=== PATIENT | female | born 1990 | race Caucasian/White ===

== ENCOUNTER 2017-05-23 16:24 | Day surgery (SDC) | payer BC ==
[2017-05-23 17:49] VITALS: BMI 29.2
[2017-05-23] MEDS ORDERED: Lactated Ringer's 1,000 ML IV SCH ×3 (18:30→19:30)
[2017-05-23] MEDS ORDERED: Ondansetron HCl/PF 4 MG/2 ML Vial ONE (18:30)
[2017-05-23] MEDS ORDERED: Ondansetron HCl/PF 4 MG/2 ML Vial IVPB SCH (18:30)
[2017-05-23] MEDS ORDERED: Lactated Ringer's 2,000 ML IV SCH (18:30)
[2017-05-23] MEDS ORDERED: Lidocaine 1% (PF) 30 ML VIAL SC PRN (19:29)
[2017-05-23] MEDS ORDERED: Ondansetron HCl/PF 4 MG/2 ML Vial IVP PRN (19:29)
[2017-05-23] MEDS ORDERED: HYDROcodone/Acetaminophen 5/325 mg Tablet PO PRN ×2 (19:29)
[2017-05-23] MEDS ORDERED: Ibuprofen 800 MG TAB PO PRN (19:29)
[2017-05-23] MEDS ORDERED: LR / Pitocin 40 units/1000 ml 1,000 ML IV PRN (19:29)
[2017-05-23] MEDS ORDERED: Misoprostol 100 MCG TAB VAG SCH (19:30)
[2017-05-23 21:10] LABS: Bilirubin Negative (Negative); Blood, Urine Negative (Negative); Glucose, Urine (Dipstick) Negative (Negative); Ketone, Urine > or equal to 80 mg/dL (Negative); Nitrite Negative (Negative); Protein, Urine (Dipstick) Negative (Neg-Trace); Urobilinogen 0.2 mg/dL (0.2-1.0)
[2017-05-23 21:12] LABS: Bacteria/HPF Rare-Few HPF (None Seen); Hyaline Casts/LPF 0-3 HYALINE CAST LPF (0-3 Hyaline); RBC/HPF 0-3 HPF (0-3); WBC/HPF 0-3 HPF (0-3)
--- NOTE | 2017-05-24 08:04 | PRG ---
DATE OF SERVICE: 05/23/2017 PRIMARY OB: Dr. Katie Dang CHIEF COMPLAINT: Shortened cervical length, nausea, vomiting and dehydration. HISTORY OF PRESENT ILLNESS: The patient is a 26-year-old G2, P1 female with an intrauterine pregnanc y of di-di twins at 21 weeks gestation who has not been feeling well and upon evaluation, was noted t o have a cervical length of 1 cm. In addition, the patient has been having persistent nausea and vom iting over the last 24 hours. The patient denies any leakage of fluid or vaginal bleeding. She lacy es any urinary urgency or frequency. She denies any fever or illness, chest pain, shortness of breat h. The patient reports that she has been having uterine contractions every couple hours that were more i ntense last night and now she feels them and notices that they are there, but they are not painful wh en they occur. PAST MEDICAL HISTORY: Anxiety, PCOS, hypothyroidism. PAST SURGICAL HISTORY: None. SOCIAL HISTORY: Denies drug, alcohol or tobacco use. ALLERGIES: No known drug allergies. MEDICATIONS: Metformin 500 mg twice a day. Liothyronine 5 mcg daily, vitamins. OB LABS: Blood type is A positive, antibody screen is negative. HIV is nonreactive. RPR is nonreac tive. Hepatitis B surface antigen is nonreactive. REVIEW OF SYSTEMS: Per HPI. PHYSICAL EXAMINATION: VITAL SIGNS: Blood pressure 110/64, heart rate of 74, temperature 99.4. GENERAL: She appears to be in no acute distress. She is alert and oriented, and cooperative and ple asant to interact with. HEENT: Normocephalic, atraumatic. CHEST: Clear to auscultation bilaterally. HEART: Regular rate and rhythm. ABDOMEN: Soft and gravid. EXTREMITIES: Nontender. Nonedematous. PELVIC: Cervix is closed on digital exam. Heart tones are dopplered, baby A is 158, and baby B at 162. LABORATORY: UA was drawn and showed a specific gravity 1.015 with greater than 80 ketones, no protei n, no nitrites, no leukocyte esterase, no white blood cells and rare to few bacteria. ASSESSMENT AND PLAN: The patient is a 26-year-old female with what sounds like a gastroenteritis and persistent nausea and vomiting over the last 24 hours with inability to eat. We have given her IV, have given her 8 mg of Zofran IV and given her 2 liters of fluid IV. Afterwards she felt well enough to eat and was able to tolerate a regular diet without difficulty. Her cervical exam was closed stephanie or to discharge. The patient has instructions from her provider to remain at bed rest and has follow up next Saturday. Vaginal progesterone has been ordered by her primary provider for her to start. Samantha canseco discussed that given her twin gestation that cerclage at this time is relatively contraindicated. Prior to discharge Dr. Dang was updated to the status for the patient.
== END 2017-05-23 21:15 | disposition home or self-care (01) ==
LOC: L&D/OP 16:24
PROVIDERS: ATTEND Student in an Organized Health Care Education/Training Program
DX: O99.612 Diseases of the digestive system complicating pregnancy, second trimester (principal); K52.9 Noninfective gastroenteritis and colitis, unspecified; O26.872 Cervical shortening, second trimester; O30.042 Twin pregnancy, dichorionic/diamniotic, second trimester; E28.2 Polycystic ovarian syndrome; O99.282 Endocrine, nutritional and metabolic diseases complicating pregnancy, second trimester; E03.9 Hypothyroidism, unspecified; Z3A.21 21 weeks gestation of pregnancy; Z79.899 Other long term (current) drug therapy
CPT/HCPCS: 81001; 96360; 96361; 96375; J2405

== ENCOUNTER 2017-07-18 16:06 | Inpatient (IN) | payer BC ==
[2017-07-18 16:53] VITALS: BMI 33.4
[2017-07-18 18:00] LABS: Amnisure Test No Membranes Rupture (No Rupture)
[2017-07-18 18:01] LABS: Amnisure Internal Control QC ACCEPTABLE (ACCEPTABLE)
[2017-07-18] MEDS ORDERED: Ondansetron HCl/PF 4 MG/2 ML Vial IVP PRN (18:56)
[2017-07-18] MEDS ORDERED: Acetaminophen 500 MG TAB PO PRN (18:56)
[2017-07-18] MEDS ORDERED: Lactated Ringer's 1,000 ML IV SCH (19:00)
[2017-07-18] MEDS: Betamet Acet/Betamet Na Ph 30 MG/5 ML VIAL IM SCH (19:49)
--- NOTE | 2017-07-18 20:31 | ULT ---
LIMITED OB ULTRASOUND 07/18/17 HISTORY: Exam requested to evaluate BETTY. FINDINGS: A live twin is seen. The twin on the maternal left with vertex presentation is labeled twin A and the twin on the maternal right with breech presentation is labeled twin B. Twin A: The heart rate measures 144 beats per minute. BETTY measures 8.7. Twin B: BETTY measures 11.7 cm. heart rate measures 149 beats per minute. Placenta is anteriorly located. No placenta previa is seen. POS: [facility]
[2017-07-18] MEDS ORDERED: metFORMIN 500 MG TAB PO SCH (21:00)
[2017-07-18] MEDS ORDERED: diphenhydrAMINE 50 MG/ML VIAL IVP SCH (23:30)
[2017-07-19] MEDS ORDERED: diphenhydrAMINE 25 MG CAP PO PRN (00:19)
--- NOTE | 2017-07-19 03:40 | HP ---
DATE OF ENCOUNTER: 07/18/2017 PRIMARY DISTILLERY SUPERVISOR: Katie Dang MD CHIEF COMPLAINT: Uterine contractions and shortened cervical length with a twin gestation. HISTORY OF PRESENT ILLNESS: The patient is a 26-year-old G2, P1 female with an intrauterine pregnanc y at 29 weeks and 1 day with di-di twin gestation. The patient had a routine clinic visit today and was noted to have a cervical length. Cervical exam of 180% reporting a change in her discharge of be ing more mucousy. The patient was sent to the Labor and Delivery ER for evaluation. The patient rep orts that she has been feeling some light abdominal discomfort that she attributed to the movem ent. She also reports she has been having a mucousy discharge and wetness, and was unsure if she had broke her water. The patient denies any recent illness, fever, fall, headache, chest pain, shortnes s of breath, nausea, vomiting, diarrhea, constipation, any new rashes, hip problems, or knee problems . Patient has a history of a delivery or a term delivery at 37 weeks. She has received steroid s at about 24 weeks gestation for shortened cervical length. She reports that got a DTaP vaccination today. PAST MEDICAL HISTORY: Significant for anxiety, PCOS, hypothyroidism. PAST SURGICAL HISTORY: Negative. SOCIAL HISTORY: Drinks alcohol prior to . ALLERGIES: No known drug allergies. CURRENT MEDICATIONS: The patient reports that she is on 150 mcg of levothyroxine, metformin 500 mg t wice a day, vitamins. OBSTETRICAL LABORATORY DATA: Blood type is A positive, antibody screen is negative, HIV is nonreacti ve. RPR nonreactive. Hepatitis B surface antigen nonreactive. REVIEW OF SYSTEMS: Per HPI. PHYSICAL EXAMINATION: VITAL SIGNS: Blood pressure 118/68, heart rate 103, respiratory rate 18, satting 99% on room air, te mperature 99.4. GENERAL: The patient appears to be in no acute distress. She is alert and oriented, cooperative and pleasant to interact with. HEENT: Normocephalic, atraumatic. LUNGS: Clear to auscultation bilaterally. HEART: Regular rate and rhythm. ABDOMEN: Gravid, soft, nontender to palpation. EXTREMITIES: Nontender with bilateral edema. GENITOURINARY: Has been deferred. heart tracing demonstrated baby A in the 140s with moderate long-term variability, positive accelerations, no decelerations, and baby B also in the 140s, but di stinctly different with moderate long-term variability and positive accelerations. Tocometer showing contractions about every 4-6 minutes, not clearly noticed by the patient. LABORATORY DATA: AmniSure test is negative. BETTY of both baby A and baby B are within normal limits at 8 and 11 cm. ASSESSMENT AND PLAN: The patient is a 26-year-old female G2, P1 with an intrauterine of di -di twins at 29 weeks and a day with a known shortened cervical length and dilation of 1 cm. These f indings have been present. Cervical length has been present nearly the last month and both fetuses h ave category 1 tracings. Patient does have contractions present and there has been a reported change of cervix and closed to 1 cm. We will be keeping the patient for observation to determine whether t here is progress in this contraction pattern to actual labor. The patient, per her primary OB's requ est, will be receiving steroids during her stay. Dr. Dang will be assuming care and responsibilit y for Ms. Hollingsworth on this admission.
[2017-07-19] MEDS: Lactated Ringer's 1,000 ML IV SCH ×3 (06:39→19:29)
--- NOTE | 2017-07-19 07:45 | PDOC.LDPN ---
Labor & Delivery Progress Note - Subjective Subjective: comfortable, other (Can slightly feel contractions q 2-6min, good fm , no lof vb) - Objective Vital signs reviewed and normal: yes General: NAD Uterine fundus: non tender Dilation: 1 Effacement: 90% Station: -2 (as of yesterday) FHT: category 1 (x2) [place] contractions every: q2-6min - Assessment (1) Dichorionic diamniotic twin in third trimester Code(s): O30.043 - TWIN , DICHORIONIC/DIAMNIOTIC, THIRD TRIMESTER Current Visit: Yes Status: Acute (2) labor in third trimester Code(s): O60.03 - LABOR WITHOUT DELIVERY, THIRD TRIMESTER Current Visit: Yes Status: Acute (3) Short cervix affecting Code(s): O26.879 - CERVICAL SHORTENING, UNSPECIFIED TRIMESTER Current Visit: Yes Status: Acute -: 26yo at 29w2d by LMP with mindi TIUP, short cervix, presented yesterday with ctx, FFN was positive, on L&D pt found to be brittny however not painful, admitted for steroids and observation. Ctx persistent s/p po hydration and bedrest, will start procardia tocolysis. BMZ 1/2. If labors for Mg for [employer] and PCS due to TIUP and EFW < 1500gm. Julio aware. Cont q shift NST. Plan of care disc with pt. Ok to cont regular diet. CBC and TSH ordered.
[2017-07-19] MEDS ORDERED: NIFEdipine 10 MG CAP PO PRN (08:22)
[2017-07-19] MEDS ORDERED: NIFEdipine 10 MG CAP PO SCH ×4 (08:22→23:00)
[2017-07-19] MEDS: Levothyroxine 150 MCG TAB PO SCH (08:34)
[2017-07-19] MEDS: metFORMIN 500 MG TAB PO SCH ×2 (08:35→17:34)
[2017-07-19 09:20] LABS: #Eosinphils 0.1 thou/uL (0.0-0.7); #Lymphocytes 1.5 thou/uL (1.20-3.40); #Monocytes 0.2 thou/uL (0.11-0.59); #Neutrophils 13.4 thou/uL (1.40-6.50); %Eosinophils 0.5 % (0.0-10.0); %Monocytes 1.1 % (0.0-10.0); %Neutrophils 88.5 % (42.0-75.0); Hemoglobin 11.4 g/dL (12.0-16.0); Mean Corpuscular HGB CONC 34.2 g/dL (32.0-36.0); Mean Corpuscular Hemoglobin 30.6 pg (27.0-31.0); Mean Corpuscular Volume 89.5 fl (81.0-99.0); Mean Platelet Volume 7.9 fL (7.4-10.4); Platelet Count 209 thou/uL (130-400); Red Blood Cell (RBC) Count 3.71 mill/uL (4.20-5.40); White Blood Cell (WBC) Count 15.2 thou/uL (4.8-10.8)
[2017-07-19 18:14] VITALS: BP 112/78
[2017-07-19] MEDS: Betamet Acet/Betamet Na Ph 30 MG/5 ML VIAL IM SCH (19:49)
[2017-07-19] MEDS ORDERED: NIFEdipine 10 MG CAP ONE (21:59)
[2017-07-19] MEDS ORDERED: Zolpidem Tartrate 5 MG TAB PO PRN (22:00)
[2017-07-20] MEDS: Levothyroxine 150 MCG TAB PO SCH (08:40)
[2017-07-20] MEDS: metFORMIN 500 MG TAB PO SCH (08:41)
[2017-07-20 09:30] VITALS: TEMP 98.1
--- NOTE | 2017-07-20 11:22 | DIS ---
SUMMARY OF HOSPITAL COURSE: Ms. Hollingsworth is a 29-week, dichorionic diamniotic twin who was a dmitted with a shortened cervix and cervical dilatation. She does have occasional contractions. The se responded well to IV fluids, bed rest, and Procardia. The patient only needed Procardia for sever al doses. She received betamethasone x2 doses. No evidence of chorioamnionitis, rupture o f membranes were noted. She had a positive fibronectin. She was discharged home with p.r.n. P rocardia at the patient's request 10 mg q.4-8 hours p.r.n. She will have close followup on a weekly basis with Dr. Katie Dang.
== END 2017-07-20 11:07 | disposition home health service (06) | DRG 778 ==
LOC: L&D/OP 16:06 → L&D 20:54 → OBSVTOIN 20:54
PROVIDERS: ADMIT Student in an Organized Health Care Education/Training Program; ATTEND Student in an Organized Health Care Education/Training Program
DX: O60.03 Preterm labor without delivery, third trimester (principal); O26.873 Cervical shortening, third trimester; O34.33 Maternal care for cervical incompetence, third trimester; Z3A.29 29 weeks gestation of pregnancy; O30.043 Twin pregnancy, dichorionic/diamniotic, third trimester
CPT/HCPCS: 76815; 82731; 84112; 84443; 85025; 99285; J0702; J2405

== ENCOUNTER 2017-07-25 11:23 | Inpatient (IN) | payer BC ==
[2017-07-25 12:06] VITALS: BMI 33.6
[2017-07-25] MEDS ORDERED: Promethazine HCl 25 MG/ML VIAL IM PRN (12:16)
[2017-07-25] MEDS ORDERED: Ondansetron HCl/PF 4 MG/2 ML Vial IVP PRN (12:16)
[2017-07-25] MEDS ORDERED: Calcium Gluconate 4.6 MEQ in Sodium Chloride 0.9% 100 ML IVPB PRN (12:18)
[2017-07-25] MEDS ORDERED: Lactated Ringer's 1,000 ML IV SCH (12:30)
[2017-07-25] MEDS ORDERED: Magnesium Sulfate 20 gm/500 ml 20 GM/500 ML BAG IVPB SCH (12:30)
[2017-07-25] MEDS ORDERED: Penicillin G Potassium 5 MILL.UNITS in Sodium Chloride 0.9% 100 ML IVPB SCH (12:30)
[2017-07-25 13:08] LABS: Hemoglobin 11.6 g/dL (12.0-16.0); Mean Corpuscular HGB CONC 33.4 g/dL (32.0-36.0); Mean Corpuscular Hemoglobin 29.7 pg (27.0-31.0); Mean Platelet Volume 7.9 fL (7.4-10.4); Platelet Count 259 thou/uL (130-400); RBC Distribution Width 12.9 % (11.5-14.5); White Blood Cell (WBC) Count 14.3 thou/uL (4.8-10.8)
[2017-07-25] MEDS: Magnesium Sulfate 20 GM/WATER 500 ML BAG IVPB SCH (13:12)
--- NOTE | 2017-07-25 13:15 | PDOC.LDHP ---
Labor and Delivery H&P Chief complaint: contractions HPI: 26yo at 30w1d with mindi TIUP with complaints of dizziness, weakness, hot flashes and increase in pelvic pressure. +FM. No VB LOF. Discharge unchanged. Has been followed for short cervix since 22wk. s/p BMZ x 2 courses , last was 07/18-07/19. Current gestational age (weeks): 30 Due date: 10/02/17 Dating criteria: last menstrual period Grav: 2 Para: 1 OB History Details: Prior preg SROM at 36+6, delivery at 37w0d, 7lb6oz Current complications: di/di twins Abnormal US findings: No (A: ceph 1461gm MVP 3.6, B: Breech 1768gm MVP 1.56cm) Past Medical History: hypothyroid, PCOS, anxiety, CF carrier- negative Current medications: pre-suze vitamins Previous surgical history: none Allergies/Adverse Reactions: Allergies Allergy/AdvReac Type Severity Reaction Status Date / Time No Known Allergies Allergy Unverified 05/23/17 17:46 Social history: none - Physical Exam Vital signs reviewed and normal: yes General: NAD Heart: RRR Lungs: CTAB Abdomen: NTTP Extremeties: no edema FHT: category 1 [place] contractions every: 10min - Vaginal Exam cm dilated: 4 Effacement: 90% Station: -1 - OB Labs RH: positive Antibody Screen: negative HIV: negative RPR: negative HEPSAg: negative GBS: unknown Rubella: immune - Assessment L&D Assessment: labor Twin IUP at 30w1d with labor and advanced cervical dilation. s/p BMZ x 2 courses Start Mag for SHANK TURNER Not for retocolysis. For primary CS due to EFW and concern for head entrapment of second twin with breech extraction. Julio consult Inpatient monitoring. FHT Cat 1. MPV low in Baby B on sono today, will repeat tomorrow.
[2017-07-25 13:39] LABS: HBSAg Index 0.11 S/CO (0-0.99); Hep B Surf Ag Non-Reactive S/CO (NonReactive)
[2017-07-25 13:40] LABS: Syphilis Antibody Nonreactive (Nonreactive); Syphilis Antibody Index 0.04 S/CO (<1.00 Non-Reactive)
--- NOTE | 2017-07-25 14:45 | PDOC.APC ---
Antepartum Consult SONIA MARTINEZ is a 26 year old female at [30 1/7] gestational weeks. I was asked by Dr Dang to speak with the patient regarding anticipated course for a baby born at 30 weeks. I spoke with the patient and father of the baby. I outlined that the timing and mode of delivery is a decision that will be made by the OB service. Once the patient is taken for delivery, the resuscitation team will be present and I outlined the composition of the resuscitation team. The initial focus will be on respiratory stabilization and may include minimal assistance, CPAP or intubation with surfactant administration. I discussed that the babies will need to be admitted to the NICU in an isolette due to temperature instability associated with prematurity. We will then obtain IV access (peripheral or umbilical depending on size) as babies are at risk for hypoglycemia. We discussed that babies born are at higher risk for feeding intolerance, infection and jaundice. I discussed that breastmilk is the best nutrition for babies and she is strongly encouraged to pump after delivery. Mother plans to breastfeed. I discussed that donor milk is available for babies and discussed the risks and benefits as well as the risk of NEC with formula use. I explained the risk of IVH and ROP and the possible screening based on the weight of the babies. We discussed that the duration of hospital stay will be determined on the clinical course of the babies but they should anticipate hospitalization until the due date. I outlined the milestones that needed to be achieved to ensure safe discharge home. They had the opportunity to ask questions. I encouraged them to contact our service again if additional questions arise. I spend 20 minutes in consultation and coordination of care with the patient. Labs: Ante Labs Blood Type A POSITIVE 07/25/17 12:47 Hep Bs Antigen Non-Reactive S/CO (NonReactive) 07/25/17 12:47
[2017-07-25] MEDS: Lactated Ringer's 1,000 ML IV SCH (15:48)
[2017-07-25] MEDS: Penicillin G 2.5 MILL.units 2.5 MILL.UNITS in Premix Bag 1 BAG IVPB SCH ×2 (17:59→21:41)
[2017-07-25 22:38] LABS: Amnisure Test No Membranes Rupture (No Rupture)
[2017-07-25 22:39] LABS: Amnisure Internal Control QC ACCEPTABLE (ACCEPTABLE)
[2017-07-25] MEDS: Zolpidem Tartrate 5 MG TAB PO PRN (23:11)
[2017-07-25] MEDS: Acetaminophen 500 MG TAB PO PRN (23:11)
[2017-07-26] MEDS: Penicillin G 2.5 MILL.units 2.5 MILL.UNITS in Premix Bag 1 BAG IVPB SCH ×2 (01:23→05:47)
[2017-07-26] MEDS: Lactated Ringer's 1,000 ML IV SCH (05:48)
[2017-07-26] MEDS: Magnesium Sulfate 20 GM/WATER 500 ML BAG IVPB SCH (07:35)
[2017-07-26 08:02] VITALS: BP 119/71
--- NOTE | 2017-07-26 08:17 | PDOC.LDPN ---
Labor & Delivery Progress Note - Subjective Subjective: comfortable (no painful contractions, good fm. had small lof last night, amnisure neg, no more lof) - Objective Vital signs reviewed and normal: yes General: NAD Uterine fundus: non tender FHT: category 1 (x2) [place] contractions every: 30min - Assessment (1) Dichorionic diamniotic twin in third trimester Code(s): O30.043 - TWIN , DICHORIONIC/DIAMNIOTIC, THIRD TRIMESTER Current Visit: No Status: Acute (2) labor in third trimester Code(s): O60.03 - LABOR WITHOUT DELIVERY, THIRD TRIMESTER Current Visit: No Status: Acute Qualifiers: labor delivery status: without delivery Qualified Code(s): O60.03 - labor without delivery, third trimester -: 26yo with mindi TIUP at 30w2d with APTL. Last exam /-1. Not for retocolysis since steroids have been given (last week was second course). Was on Mag overnight for RIVETER PNEUMATIC. Will DC now. HLIV. DC GBS ppx, GBS pending FHT Cat 1 x 2, q shift NST. Yesterday on in office sono showed low MVP baby B will recheck today. Transfer to APU room. For inpatient observation for return of PTL. For primary CS if labors due to prematurity and risks of head entrapment with breech extraction of B. Restart home meds.
--- NOTE | 2017-07-26 10:39 | ULT ---
SONOGRAPHIC BIOPHYSICAL PROFILE: HISTORY: Twin . labor. FINDINGS: Fetus A is designated to the maternal left. Amniotic fluid index=9.0. Good tone and gross mov ements were demonstrated. breathing movements were not demonstrated. Fetus B is designated to the maternal right. Amniotic fluid index=7.2. tone and gross movemen ts were demonstrated. breathing movement was not visualized. IMPRESSION: Sonographic biophysical profile score is 6/8 for each fetus of the twin . Breathing movemen t was not visualized with either fetus. POS: [facility]
[2017-07-26] MEDS: Prenatal Vitamin 1 TAB PO SCH (11:10)
[2017-07-26] MEDS: Acetaminophen 500 MG TAB PO PRN (11:10)
[2017-07-26] MEDS: metFORMIN 500 MG TAB PO SCH (17:50)
[2017-07-27] MEDS: Levothyroxine 150 MCG TAB PO SCH (06:25)
[2017-07-27] MEDS: Prenatal Vitamin 1 TAB PO SCH (10:43)
[2017-07-27] MEDS: metFORMIN 500 MG TAB PO SCH ×2 (11:10→20:04)
[2017-07-27] MEDS: Docusate 100 MG CAP PO PRN (11:19)
[2017-07-27] MEDS: Milk Of Magnesia 30 ML UDCUP PO PRN (11:19)
[2017-07-28] MEDS: Levothyroxine 150 MCG TAB PO SCH (06:24)
[2017-07-28] MEDS: Prenatal Vitamin 1 TAB PO SCH (09:17)
[2017-07-28] MEDS: metFORMIN 500 MG TAB PO SCH ×2 (09:18→20:01)
--- NOTE | 2017-07-28 10:58 | PRG ---
DATE OF SERVICE: 07/27/2017 SUBJECTIVE: The patient feels well. She is having fewer contractions today than yesterday. She denies any vaginal bleeding or leakage of fluid. She reports good movement. OBJECTIVE: VITAL SIGNS: The patient is afebrile. Vital signs are within normal limits. GENERAL: Well-appearing female, in no acute distress. OBSTETRIC: heart tracing is category 1. OBSTETRICAL HISTORY: The patient had a biophysical profile of both babies that was 6/8 yesterday, -2 for breathing on each baby. ASSESSMENT AND PLAN: 2, para 1 female, 30 weeks 3 days with twin labor at 4 cm. The patient is doing well, surveillance is reassuring. She has received betamethasone. We will continue the patient with current plan of care. JORGE
--- NOTE | 2017-07-28 11:49 | PDOC.LDPN ---
Labor & Delivery Progress Note - Subjective Subjective: comfortable, no concerns - Objective Vital signs reviewed and normal: yes General: NAD, resting Uterine fundus: non tender FHT: category 1 (150s/135, mod variability, + accels, no decels) [place] contractions every: None - Assessment (1) Dichorionic diamniotic twin in third trimester Code(s): O30.043 - TWIN , DICHORIONIC/DIAMNIOTIC, THIRD TRIMESTER Current Visit: No Status: Acute (2) labor in third trimester Code(s): O60.03 - LABOR WITHOUT DELIVERY, THIRD TRIMESTER Current Visit: No Status: Acute Qualifiers: labor delivery status: without delivery Qualified Code(s): O60.03 - labor without delivery, third trimester Plan: continue plan of care -: Doing well without complaints. No e/o continued PTL, s/p tocolysis, celestone x 2. status reassuring. Continue expectant management.
[2017-07-28] MEDS: Mag-Al 1200 mg/1200 mg/30 ML UDCUP PO PRN (12:54)
[2017-07-28] MEDS: Docusate 100 MG CAP PO PRN (12:55)
[2017-07-28] MEDS ORDERED: Lactated Ringer's 1,000 ML IV SCH (23:45)
[2017-07-28] MEDS ORDERED: NIFEdipine 10 MG CAP ONE (23:49)
[2017-07-28] MEDS ORDERED: NIFEdipine 10 MG CAP PO PRN (23:53)
[2017-07-29] MEDS: Lactated Ringer's 1,000 ML IV SCH ×4 (01:04→22:17)
[2017-07-29] MEDS: Zolpidem Tartrate 5 MG TAB PO PRN ×2 (01:06→22:18)
[2017-07-29] MEDS: Prenatal Vitamin 1 TAB PO SCH (08:07)
[2017-07-29] MEDS: metFORMIN 500 MG TAB PO SCH ×2 (08:08→20:20)
[2017-07-29] MEDS: Levothyroxine 150 MCG TAB PO SCH (08:09)
[2017-07-29 10:04] LABS: Hemoglobin 10.6 g/dL (12.0-16.0); Mean Corpuscular HGB CONC 32.7 g/dL (32.0-36.0); Mean Corpuscular Hemoglobin 29.2 pg (27.0-31.0); Mean Corpuscular Volume 89.2 fl (81.0-99.0); Mean Platelet Volume 7.9 fL (7.4-10.4); Platelet Count 197 thou/uL (130-400); RBC Distribution Width 13.5 % (11.5-14.5); Red Blood Cell (RBC) Count 3.64 mill/uL (4.20-5.40); White Blood Cell (WBC) Count 12.9 thou/uL (4.8-10.8)
--- NOTE | 2017-07-29 11:20 | PDOC.LDPN ---
Labor & Delivery Progress Note - Subjective Subjective: comfortable (, feeling nonpainful contractions q 10min, last night more painful q5min, procardia helped, slept well last night. No LOF or VB. Good FM) - Objective Vital signs reviewed and normal: yes General: NAD Uterine fundus: non tender Dilation: 4 Effacement: 90% Station: -1 (BBOW) FHT: category 1 (x2) [place] contractions every: q10min - Assessment (1) Dichorionic diamniotic twin in third trimester Code(s): O30.043 - TWIN , DICHORIONIC/DIAMNIOTIC, THIRD TRIMESTER Current Visit: No Status: Acute (2) labor in third trimester Code(s): O60.03 - LABOR WITHOUT DELIVERY, THIRD TRIMESTER Current Visit: No Status: Acute Qualifiers: labor delivery status: without delivery Qualified Code(s): O60.03 - labor without delivery, third trimester -: mindi TIUP at 30w5d with arrested PTL. Has prn procardia for symptoms however not for tocolysis. SVE unchanged from admit. Ok for q shift monitoring, showering and regular diet. Continue inpatient mgmt for advanced cervical dilation at 30wk. For primary CS due to weights and risks associated with vaginal delivery of twins at this gestation. GBS pos. s/p BMZ x 2 courses. FHT Cat 1 x2.
[2017-07-29] MEDS: Docusate 100 MG CAP PO PRN (11:45)
[2017-07-30] MEDS: Levothyroxine 150 MCG TAB PO SCH (08:02)
[2017-07-30] MEDS: metFORMIN 500 MG TAB PO SCH ×2 (08:03→19:48)
[2017-07-30] MEDS: Prenatal Vitamin 1 TAB PO SCH (08:19)
--- NOTE | 2017-07-30 08:29 | PDOC.LDPN ---
Labor & Delivery Progress Note - Subjective Subjective: comfortable (contractions have decreased, slept well overnight, very mild intensity and infrequent this am) - Objective Vital signs reviewed and normal: yes General: NAD Uterine fundus: non tender FHT: category 1 ( x 2) - Assessment (1) Dichorionic diamniotic twin in third trimester Code(s): O30.043 - TWIN , DICHORIONIC/DIAMNIOTIC, THIRD TRIMESTER Current Visit: No Status: Acute (2) labor in third trimester Code(s): O60.03 - LABOR WITHOUT DELIVERY, THIRD TRIMESTER Current Visit: No Status: Acute Qualifiers: labor delivery status: without delivery Qualified Code(s): O60.03 - labor without delivery, third trimester -: Arrested labor with advanced cervical dilation of mindi twins at 30.6wk. Asymptomatic currently, not for retocolysis if labors and will be for PCS at this gestational age and weights. Will repeat BPP today, 12/13 last Saturday due to no breathing however at 30w do not always see breathing movements. No evidence of immediate compromise and normal growth noted on ultrasound last . Hep lock IV. Cont current APU care.
--- NOTE | 2017-07-30 09:49 | ULT ---
NON STRESS BIOPHYSICAL PROFILE: Date: 07/30/16 HISTORY: Twin gestation. Pre-term labor. COMPARISON: 07/26/17. TECHNIQUE: Non stress biophysical profile of Twin A and Twin B was performed. FINDINGS: TWIN A: position is vertex. Anterior placenta. heart tones with a rate of 155 beats/minute. Amnio tic fluid index is 6.9. Tone: 2 Breathin Movement: 2 Amniotic Fluid: 2 Total Score: 8/8 TWIN B: Breech presentation. Anterior placenta. heart tones with a rate of 133 beats/minute. Amniotic f luid index is 8.7 cm. Tone: 2 Breathin Movement: 2 Amniotic Fluid: 2 Total Score: 8/8 IMPRESSION: Non stress biophysical profile with a total score of 8/8 for Twin A, as well as for Twin B. Note, lower uterine segment is not adequately assessed on this exam due to shadowing. Cervical length cannot be measured. POS: [facility]
[2017-07-30] MEDS: Docusate 100 MG CAP PO PRN (20:41)
[2017-07-30] MEDS: Zolpidem Tartrate 5 MG TAB PO PRN (22:15)
[2017-07-31] MEDS: Levothyroxine 150 MCG TAB PO SCH (08:50)
[2017-07-31] MEDS: metFORMIN 500 MG TAB PO SCH ×2 (08:51→18:28)
--- NOTE | 2017-07-31 10:11 | PDOC.LDPN ---
Labor & Delivery Progress Note - Subjective Subjective: comfortable, other (no contractions, good FM, no LOF or bleeding) - Objective Vital signs reviewed and normal: yes General: resting FHT: variability present (appropriate for GA x 2) - Assessment (1) 31 weeks gestation of Code(s): Z3A.31 - 31 WEEKS GESTATION OF Current Visit: Yes Status : Acute (2) Dichorionic diamniotic twin in third trimester Code(s): O30.043 - TWIN , DICHORIONIC/DIAMNIOTIC, THIRD TRIMESTER Current Visit: No Status: Acute (3) Short cervix affecting Code(s): O26.879 - CERVICAL SHORTENING, UNSPECIFIED TRIMESTER Current Visit: No Status: Acute Plan: continue plan of care -: A?P: Pt is now 31 weeks GA, no symptomatic contractions, sp steroid benefit. Continue modified bed rest and close monitoring for si/sx of PTL.
[2017-07-31] MEDS: Prenatal Vitamin 1 TAB PO SCH (18:33)
[2017-07-31] MEDS: Zolpidem Tartrate 5 MG TAB PO PRN (22:10)
--- NOTE | 2017-08-01 08:41 | PDOC.LDPN ---
Labor & Delivery Progress Note - Subjective Subjective: vaginal pressure (lost mucus plug last night, increase in painful contractions overnight, about 5 total. Good FM. Ctx this am are mild, 5/10) - Objective Vital signs reviewed and normal: yes General: NAD Uterine fundus: non tender Dilation: 4 Effacement: 75% Station: -1 FHT: category 1 (x2) - Assessment (1) Dichorionic diamniotic twin in third trimester Code(s): O30.043 - TWIN , DICHORIONIC/DIAMNIOTIC, THIRD TRIMESTER Status: Acute (2) labor in third trimester Code(s): O60.03 - LABOR WITHOUT DELIVERY, THIRD TRIMESTER Status: Acute Qualifiers: labor delivery status: without delivery Qualified Code(s): O60.03 - labor without delivery, third trimester -: Arrested PTL, SVE unchanged, reassured pt. Cont modified bedrest. FHT Cat 1 x 2, cont q shift NST Cont APU care.
[2017-08-01] MEDS: metFORMIN 500 MG TAB PO SCH ×2 (08:46→19:31)
[2017-08-01] MEDS: Levothyroxine 150 MCG TAB PO SCH (08:47)
[2017-08-01] MEDS: Docusate 100 MG CAP PO PRN (12:06)
[2017-08-01] MEDS: Prenatal Vitamin 1 TAB PO SCH (12:06)
[2017-08-01] MEDS: Milk Of Magnesia 30 ML UDCUP PO PRN (12:06)
[2017-08-02] MEDS: Levothyroxine 150 MCG TAB PO SCH (06:26)
--- NOTE | 2017-08-02 07:44 | PDOC.LDPN ---
Labor & Delivery Progress Note - Subjective Subjective: comfortable - Objective Vital signs reviewed and normal: yes General: NAD Uterine fundus: non tender FHT: category 1 (x 2) [place] contractions every: rare - Assessment (1) Dichorionic diamniotic twin in third trimester Code(s): O30.043 - TWIN , DICHORIONIC/DIAMNIOTIC, THIRD TRIMESTER Current Visit: No Status: Acute (2) labor in third trimester Code(s): O60.03 - LABOR WITHOUT DELIVERY, THIRD TRIMESTER Current Visit: No Status: Acute Qualifiers: labor delivery status: without delivery Qualified Code(s): O60.03 - labor without delivery, third trimester -: Arrested PTL at 31wk of mindi TIUP, 4cm stable. No e/o recurrence at this time. s/p steroid x 2 courses. Cont inpt expectant mgmt, if stable at 32w may consider DC home. Sono next week for growth. NST q shift, Cat 1 for GA. GBS pos, for PCN if labors. Currently for PCS if labors due to weights. Cont APU care. Ok for ad ricky activity, prn laxatives for constipation.
[2017-08-02] MEDS ORDERED: Senokot 8.6 MG TAB PO PRN (08:21)
[2017-08-02] MEDS: Prenatal Vitamin 1 TAB PO SCH (08:31)
[2017-08-02] MEDS: metFORMIN 500 MG TAB PO SCH ×2 (08:31→17:18)
[2017-08-03] MEDS: Levothyroxine 150 MCG TAB PO SCH (05:38)
[2017-08-03] MEDS: Prenatal Vitamin 1 TAB PO SCH (08:44)
[2017-08-03] MEDS: metFORMIN 500 MG TAB PO SCH ×2 (08:44→17:35)
--- NOTE | 2017-08-03 17:21 | PRG ---
DATE OF SERVICE: 08/03/2017 OB ANTEPARTUM NOTE HISTORY OF PRESENT ILLNESS: The patient is a 26-year-old female who is now hospital day #10 for pret erm labor. Patient has an intrauterine with dichorionic diamniotic twins at 31 weeks gesta tion. She has been slowly making change of her cervix and most recently is documented to have a cerv ical exam of 4 cm dilation, 75% effacement, -1 station. The patient reports today that she is feelin g well. She denies any fever or any abdominal pain, any leaking, no fluid or bleeding. PHYSICAL EXAMINATION: VITAL SIGNS: Today, blood pressure today is 129/76, heart rate of 93-102, respiratory rate 18, tempe rature 99.1. GENERAL: She appears to be in no acute distress. She is alert and oriented, and cooperative and ple asant to interact with. HEAD: Normocephalic, atraumatic. ABDOMEN: Soft, nontender to palpation. EXTREMITIES: Nontender, nonedematous. heart tracing NST today shows baby A in the 140s with moderate long-term variability, positive accelerations, no decelerations, and baby B also in the 140s with moderate long-term variability, pos itive accelerations and what appeared to be possibly a few very small variables. Both heart rates ar e distinguishably different from one another. There are contractions visible on the monitor with marcellus e underlying irritability. Contractions appear to be about every 10-12 minutes. ASSESSMENT AND PLAN: Patient is now hospital day #10 with a di/di twin gestation at 31 weeks and 3 d ays with a dilated cervix at 4 cm. This finding has been unchanged since her arrival on 07/25/2017. Patient will continue inhouse care until about [address] Dang will re-evaluate the possibili ty of discharge home.
[2017-08-04] MEDS: Levothyroxine 150 MCG TAB PO SCH (05:34)
[2017-08-04] MEDS: metFORMIN 500 MG TAB PO SCH ×2 (08:23→17:40)
[2017-08-04] MEDS: Prenatal Vitamin 1 TAB PO SCH (08:23)
--- NOTE | 2017-08-04 10:09 | PDOC.LDPN ---
Labor & Delivery Progress Note - Objective Vital signs reviewed and normal: yes General: NAD Uterine fundus: non tender FHT: category 1 (NST seen from this AM..uterine quiescence. ) - Assessment (1) 31 weeks gestation of Code(s): Z3A.31 - 31 WEEKS GESTATION OF Current Visit: Yes Status : Acute (2) Dichorionic diamniotic twin in third trimester Code(s): O30.043 - TWIN , DICHORIONIC/DIAMNIOTIC, THIRD TRIMESTER Current Visit: No Status: Acute (3) First stage of labor Code(s): TXP9635 - Current Visit: No Status: Acute (4) labor in third trimester Code(s): O60.03 - LABOR WITHOUT DELIVERY, THIRD TRIMESTER Current Visit: No Status: Acute Qualifiers: labor delivery status: without delivery Qualified Code(s): O60.03 - labor without delivery, third trimester Plan: continue plan of care (Patient seen at bedside at 1000, Doing well. No evidence true progressive labor. Continue in-house obs. Dr Dang to resume care tomorrow Saturday. I have reviewed plan with patient. )
[2017-08-05] MEDS: Levothyroxine 150 MCG TAB PO SCH (08:16)
[2017-08-05] MEDS: metFORMIN 500 MG TAB PO SCH ×2 (08:17→17:37)
[2017-08-05] MEDS: Prenatal Vitamin 1 TAB PO SCH (08:20)
--- NOTE | 2017-08-05 13:05 | PDOC.LDPN ---
Labor & Delivery Progress Note - Subjective Subjective: comfortable - Objective Vital signs reviewed and normal: yes General: NAD Uterine fundus: non tender FHT: category 1 ( x 2) [place] contractions every: none - Assessment (1) Dichorionic diamniotic twin in third trimester Code(s): O30.043 - TWIN , DICHORIONIC/DIAMNIOTIC, THIRD TRIMESTER Current Visit: No Status: Acute (2) labor in third trimester Code(s): O60.03 - LABOR WITHOUT DELIVERY, THIRD TRIMESTER Current Visit: No Status: Acute Qualifiers: labor delivery status: without delivery Qualified Code(s): O60.03 - labor without delivery, third trimester Plan: continue plan of care
--- NOTE | 2017-08-05 13:58 | ULT ---
PELVIC ULTRASOUND: HISTORY: Pre-term labor. Twin . Evaluate for gestational size. COMPARISON: 07/30/2017 TECHNIQUE: Sagittal and transverse imaging of the gravid uterus is performed. FINDINGS: TWIN A: Cephalic presentation. Anterior placenta. Estimated weight is 1562 g. Amniotic flui d index is 7.8 cm. heart tones with a rate of 153 beats per minute. BIOMETRY: BPD: 8.06 cm (32 weeks and 3 days) HEAD CIRCUMFERENCE: 28.75 cm (31 weeks and 4 days) ABDOMINAL CIRCUMFERENCE: 25.22 cm (29 weeks and 3 days) FEMUR LENGTH: 5.96 cm (31 weeks and 0 days) AVERAGE AGE BY SONOGRAPHY: 31 weeks and 1 day AMNIOTIC FLUID INDEX: 7.8 cm TWIN B: Breech presentation. heart tones with a rate of 152 beats per minute. Posterior fund al placenta. Estimated weight is 1821 g. BIOMETRY: BPD: 7.73 cm (31 weeks and 0 days) HEAD CIRCUMFERENCE: 29.18 cm (32 weeks and 1 day) ABDOMINAL CIRCUMFERENCE: 28.34 cm (32 weeks and 3 days) FEMUR LENGTH: 5.8 cm (30 weeks and 4 days) ESTIMATED DATE OF DELIVERY BY SONOGRAPHY: 31 weeks and 4 days AMNIOTIC FLUID INDEX: 11.9 cm IMPRESSION: Twin as above. Average age by sonography of twin A is 31 weeks and 1 day. Average age by sonography of twin B is 31 weeks and 4 days. Twin A measures 1562 g. Twin B measures 1821 g. POS: [facility]
[2017-08-05] MEDS: Docusate 100 MG CAP PO PRN (17:37)
[2017-08-05] MEDS: Mag-Al 1200 mg/1200 mg/30 ML UDCUP PO PRN (17:38)
[2017-08-05] MEDS: Zolpidem Tartrate 5 MG TAB PO PRN (23:14)
[2017-08-06] MEDS: Levothyroxine 150 MCG TAB PO SCH (05:49)
[2017-08-06] MEDS: metFORMIN 500 MG TAB PO SCH ×2 (08:22→17:10)
[2017-08-06] MEDS: Docusate 100 MG CAP PO PRN (09:09)
[2017-08-06] MEDS: Prenatal Vitamin 1 TAB PO SCH (09:09)
--- NOTE | 2017-08-06 13:55 | PDOC.LDPN ---
Labor & Delivery Progress Note - Subjective Subjective: comfortable - Objective Vital signs reviewed and normal: yes General: NAD Uterine fundus: non tender FHT: category 1 ( x 2) [place] contractions every: none - Assessment (1) Dichorionic diamniotic twin in third trimester Code(s): O30.043 - TWIN , DICHORIONIC/DIAMNIOTIC, THIRD TRIMESTER Current Visit: No Status: Acute (2) labor in third trimester Code(s): O60.03 - LABOR WITHOUT DELIVERY, THIRD TRIMESTER Current Visit: No Status: Acute Qualifiers: labor delivery status: without delivery Qualified Code(s): O60.03 - labor without delivery, third trimester -: mindi TIUP at 31w6d with arrested PTL at 4cm. Asx for 1 week, s/p steroid benefit. Not for retocolysis. Plan DC tomorrow if continues to be asymptomatic. Sono yesterday shows 1562/1800gm, Ceph/Breech, normal BETTY, reassuring. FHT Cat 1 for GA x 2. Cont APU care.
[2017-08-06 19:55] VITALS: TEMP 98.8
[2017-08-07] MEDS: Levothyroxine 150 MCG TAB PO SCH (06:06)
[2017-08-07] MEDS: metFORMIN 500 MG TAB PO SCH (08:01)
--- NOTE | 2017-08-07 12:21 | PDOC.LDPN ---
Labor & Delivery Progress Note - Subjective Subjective: comfortable - Objective Vital signs reviewed and normal: yes General: NAD Uterine fundus: non tender Dilation: 4 Effacement: 75% Station: -1 FHT: category 1 ( x2) [place] contractions every: none - Assessment (1) Dichorionic diamniotic twin in third trimester Code(s): O30.043 - TWIN , DICHORIONIC/DIAMNIOTIC, THIRD TRIMESTER Current Visit: No Status: Acute (2) labor in third trimester Code(s): O60.03 - LABOR WITHOUT DELIVERY, THIRD TRIMESTER Current Visit: No Status: Acute Qualifiers: labor delivery status: without delivery Qualified Code(s): O60.03 - labor without delivery, third trimester -: mindi TIUP at 32w0d with arrested labor. SVE unchanged since admission, no sx labor. s/p steroid benefit. Fetuses well grown and reassuring. DC home with strict PTL warnings and FU on Saturday in office.
--- NOTE | 2017-08-09 12:34 | DIS ---
ADMISSION DIAGNOSES: 1. Di-di twin intrauterine at 30 weeks and 1 day. 2. labor. 3. Advanced cervical dilation. 4. Short cervix at 22-week. 5. Prematurity. 6. GBS unknown. 7. Hypothyroidism. DISCHARGE DIAGNOSES: 1. Di-di twin intrauterine at 32 weeks and 0 days. 2. Arrest of labor. 3. Advanced cervical dilation. 4. GBS positive. 5. Hypothyroidism. DISCHARGE CONDITION: Stable. ATTENDING PHYSICIAN: Katie Dang M.D. CONSULTATIONS: Neonatology. PROCEDURES: None. HISTORY AND PHYSICAL EXAMINATION: Please see previously dictated H&P. HOSPITAL COURSE: A 26-year-old G2, P1 who was directly admitted at 30 weeks and 1 day with di-di twi ns secondary to office exam finding of 3 cm dilated, 80% effacement and -1 station with a bulging bag of water. She was feeling more pressure at that time and contractions and on admission she was havi ng occasional contractions and changed from 3-4 cm. At that time, she was started on magnesium for n euro protection and penicillin for GBS prophylaxis. GBS culture was obtained prior to starting penic illin. Previously, the patient had already received 2 courses of betamethasone and so was not for an additional rescue course. The contractions did subside and the patient did not change her cervix pa st the 4 cm; however, secondary to the degree of dilation and the degree of prematurity the patient w as managed on an inpatient basis until 32 weeks. She had intermittent symptoms of labor; how ever, none that were as severe as on admission. The magnesium was discontinued at 12 hours and the p enicillin was discontinued at that time as well. The GBS culture came back positive and the patient had ultrasounds during her hospital admission. Biophysical profiles were within normal limits. At o ne point the babies were not breathing; however, this was appropriate for a 30 week gestation, repeat biophysical profile did demonstrate breathing movements and NSTs were category 1. These were performed on a q. shift basis unless the patient was having symptoms. She had a growth ultrasound on 08/05/2017 that showed baby A in cephalic presentation, amniotic fluid of 7.8, weighing 1562 grams c orresponding to 31 weeks and 1 day, baby B was breech presentation with BETTY of 11.9, weighing 1821 gr ams corresponding to 31 weeks and 4 days which was concordant growth. A Neonatology consultation was obtained in the event the patient did deliver she could prepare herself for what was to come for the baby's and their hospitalization and risks associated with prematurity at this gestation. She was a lso counseled for at this gestational age and weights; however, was counseled if the babies were concordantly grow and measuring greater than 1500 grams she would be a candidate for vagi nal delivery with possible breech extraction of the second twin and counseled on other risks associat ed with this. She remained asymptomatic for almost a week prior to her discharge in terms of labor symptoms and on discharge the patient did have a vaginal exam that demonstrated no further dil ation past the 4 cm, 80%, -1 station. Her thyroid medication as well as her PCOS metformin were cont inued during her hospitalization, she had a hemoglobin of 10.6, hematocrit 32.4 and a platelet count of 197. During her hospitalization, she was continued on vitamins. She was given strict pr eterm labor warnings. She will follow up with me on Saturday in the office and no labs or studies are pending at the time of discharge.
== END 2017-08-07 12:35 | disposition home health service (06) | DRG 778 ==
LOC: L&D 11:23 → L&D/OP 11:23 → EDSTATUS 11:43 → L&D 11:55 → L&D-LIB 08-01 12:13
PROVIDERS: ADMIT Student in an Organized Health Care Education/Training Program; ATTEND Student in an Organized Health Care Education/Training Program
DX: O60.03 Preterm labor without delivery, third trimester (principal); O99.830 Other infection carrier state complicating pregnancy; E03.9 Hypothyroidism, unspecified; Z3A.30 30 weeks gestation of pregnancy; O99.283 Endocrine, nutritional and metabolic diseases complicating pregnancy, third trimester; O99.820 Streptococcus B carrier state complicating pregnancy; O99.343 Other mental disorders complicating pregnancy, third trimester; F41.9 Anxiety disorder, unspecified; E28.2 Polycystic ovarian syndrome; Z22.8 Carrier of other infectious diseases; O30.043 Twin pregnancy, dichorionic/diamniotic, third trimester; J45.909 Unspecified asthma, uncomplicated; O99.340 Other mental disorders complicating pregnancy, unspecified trimester; O99.513 Diseases of the respiratory system complicating pregnancy, third trimester; R01.1 Cardiac murmur, unspecified
CPT/HCPCS: 36415; 59025; 76810; 76819; 84112; 85027; 86780; 86850; 86900; 86901; 87077; 87081; 87340; 99285; A4216; J2540; J3475; J7050

== ENCOUNTER 2017-09-06 12:37 | Inpatient (IN) | payer BC, OTHER ==
[~2017-09-06 12:37] MED LIST: Bupivacaine 0.25% HCL 30 ML VIAL ONE; Bupivacaine PF 0.5% 30 ML VIAL ONE
[2017-09-06 13:43] VITALS: BMI 36.6
[2017-09-06] MEDS ORDERED: Penicillin G Potassium 5 MILL.UNITS VIAL ONE (14:02)
[2017-09-06] MEDS ORDERED: Promethazine HCl 25 MG/ML VIAL IM PRN ×2 (14:04→15:21)
[2017-09-06] MEDS ORDERED: LR / Pitocin 40 units/1000 ml 1,000 ML IV PRN (14:04)
[2017-09-06] MEDS ORDERED: Acetaminophen 500 MG TAB PO PRN (14:04)
[2017-09-06] MEDS ORDERED: Ondansetron HCl/PF 4 MG/2 ML Vial IVP PRN ×3 (14:04→15:42)
[2017-09-06] MEDS ORDERED: Lidocaine 1% (PF) 30 ML VIAL SC PRN (14:04)
[2017-09-06] MEDS ORDERED: Penicillin G 2.5 MILL.units 2.5 MILL.UNITS in Premix Bag 1 BAG IVPB SCH (14:10)
--- NOTE | 2017-09-06 14:16 | PDOC.EVN ---
Event Note - Event Note Event Note: See OB Triage Note for H&P details. Pt/. c/o pressure, UCs. SVE 6/complete, 0 vtx twin A noted. SROM clear. FHTs A and B stable, reassuring. UCs seen q 5- 7 mins. A; Twins 36 weeks, SROM, labor GBS+. P; Admit, start Pen G and obtain epidural Disposition per Dr. Dang for vaginal delivery BZ
[2017-09-06] MEDS ORDERED: Bupivacaine 0.5% 20 ML, Fentanyl 400 MCG in Sodium Chloride 0.9% 72 ML EPIDURAL SCH (14:30)
[2017-09-06] MEDS ORDERED: DISCONTINUE ALL PREVIOUS NARCOTICS FS SCH (14:30)
[2017-09-06 14:38] LABS: Mean Corpuscular HGB CONC 32.6 g/dL (32.0-36.0); Mean Corpuscular Hemoglobin 29.2 pg (27.0-31.0); Mean Corpuscular Volume 89.6 fl (81.0-99.0); Mean Platelet Volume 9.1 fL (7.4-10.4); Platelet Count 207 thou/uL (130-400); RBC Distribution Width 14.7 % (11.5-14.5); Red Blood Cell (RBC) Count 4.45 mill/uL (4.20-5.40); White Blood Cell (WBC) Count 11.8 thou/uL (4.8-10.8)
[2017-09-06] MEDS: Lactated Ringer's 1,000 ML IV SCH ×2 (14:41→23:51)
[2017-09-06] MEDS ORDERED: Fentanyl 100 MCG/2 ML VIAL EPIDURAL ONE (14:50)
[2017-09-06] MEDS ORDERED: Fentanyl 100 MCG/2 ML VIAL ONE (14:56)
[2017-09-06 15:16] LABS: HBSAg Index 0.18 S/CO (0-0.99); Hep B Surf Ag Non-Reactive S/CO (NonReactive); Syphilis Antibody Nonreactive (Nonreactive); Syphilis Antibody Index 0.03 S/CO (<1.00 Non-Reactive)
[2017-09-06] MEDS ORDERED: ePHEDrine/0.9% NaCl/PF SYRINGE 50 mg/10 ml SLOW IVP PRN (15:21)
[2017-09-06] MEDS ORDERED: Lactated Ringer's 500 ML IV PRN (15:21)
[2017-09-06] MEDS ORDERED: diphenhydrAMINE 50 MG/ML VIAL IVP PRN (15:21)
[2017-09-06] MEDS ORDERED: Acetaminophen 325 MG TAB PO PRN (15:21)
[2017-09-06] MEDS ORDERED: LR 500 ML/Oxytocin 10 units 500 ML ONE (15:21)
[2017-09-06] MEDS ORDERED: Naloxone HCl 0.4 mg/ml Vial IVP PRN ×2 (15:21)
[2017-09-06] MEDS ORDERED: Eucerin (Mineral Oil/Petrolatum,White) 30 gm Jar TOP PRN (15:21)
[2017-09-06] MEDS ORDERED: Communication Order-Pharmacy FS SCH (15:30)
[2017-09-06] MEDS ORDERED: Fentanyl 4mcg/Marcaine 0.1% Cassette 100 ML EPIDURAL SCH (15:30)
[2017-09-06] MEDS ORDERED: Oxytocin 10 UNITS/ML VIAL ONE (15:30)
[2017-09-06] MEDS ORDERED: Lanolin Ointment 7 GM TUBE TOP PRN (15:42)
[2017-09-06] MEDS ORDERED: Benzocaine/Menthol 20-0.5% 60 ML CAN TOP PRN (15:42)
[2017-09-06] MEDS ORDERED: Bisacodyl 10 MG SUPP PR PRN (15:42)
[2017-09-06] MEDS ORDERED: Preparation H Ointment 28 GM TUBE PR PRN (15:42)
[2017-09-06] MEDS ORDERED: Milk Of Magnesia 30 ML UDCUP PO PRN (15:42)
[2017-09-06] MEDS ORDERED: diphenhydrAMINE 25 MG CAP PO PRN (15:42)
[2017-09-06] MEDS ORDERED: HYDROcodone/Acetaminophen 5/325 mg Tablet PO PRN (15:42)
[2017-09-06] MEDS ORDERED: LR / Pitocin 40 units/1000 ml 1,000 ML IV SCH (15:45)
--- NOTE | 2017-09-06 15:46 | PDOC.OPDEL ---
OB Operative/Delivery Note Delivery Dr/Surgeon: Laurence Assist: Frederick Pre-Delivery Diagnosis: active labor ( at 36w of mindi tiup, ceph/breech presentation) Procedure/Post Delivery Dx: spontaneous vaginal delivery Weeks gestation: 36 Anesthesia: epidural - Findings A Sex: male - 1 min: 8 - 5 min: 9 B Sex: male - 1 min: 8 - 5 min: 9 - Additional Findings/Plan Placenta delivered: spontaneous Repaired Obstetrical Laceration: none Estimated blood loss: 300 Compilations/Other Findings: Pt moved to OR for Double setup for twin vaginal delivery. Ceph/Breech on sono prior to delivery. On intial exam in OR pt C/C/+2 OA, with maternal pushing viable male delivered over intact perineum. Delayed cord clamping 1min and cord clamped cut, handed to awaiting Julio team. FHT Baby B were identified and 110s, sono shows seema breech presentation, -2 station. Foot grabbed and brought into vagina, SROMed, second foot quickly located and brought into vagina , rotated to sacrum anterior, and delivered to level of sacrum. Suprapubic pressure given. With maternal pushing delivered to level of scapula, rotated 90degree and arm delivered with sweeping motion over chest, rotated 180 degree opposite arm delivered in same manner easily. Aftercoming head delivered with Bea Johnston Veit maneuvar. Delayed cord clamping 30sec, infant crying, to julio team. Cord blood obtained of each baby. Placenta delivered with gentle traction and good uterine tone noted with pitocin infusing. No lacerations noted. Mom to recovery, Infants to nursery. Post delivery plan: routine recovery
[2017-09-06] MEDS ORDERED: Adacel (T-DAP) 0.5 ML VIAL IM ONE (18:00)
[2017-09-06] MEDS: Ferrous Sulfate 325 MG TAB PO SCH (18:27)
[2017-09-06] MEDS: Ibuprofen 800 MG TAB PO SCH (21:21)
[2017-09-06] MEDS: Docusate Calcium (SURFAK) 240 MG CAP PO SCH (21:21)
--- NOTE | 2017-09-06 22:04 | SS ---
DATE OF SERVICE: 09/06/2017 ATTENDING PHYSICIAN: Katie Dang M.D. EVALUATING PHYSICIAN: Kirill Mack M.D. CHIEF COMPLAINT: Pelvic pressure, uncomfortable. HISTORY OF PRESENT ILLNESS: Ms. Hollingsworth is a 26-year-old white G2, P1-0-0-1 with an estimated date of confinement of 10/02/2017 with a known twin gestation who presents to Labor and Delivery this aftern oon complaining of pelvic pressure. She states that she has been followed in the office by Dr. Davey dietrich. Her has been complicated by labor and apparently she has been given 2 rounds o f steroids. She saw Dr. Dang in the office this week and apparently had her membranes stripped. Since that time, she states she has felt some pressure, but denies regular contractions or bleeding. PAST OBSTETRICAL HISTORY: A prior vaginal delivery at 37 weeks of a 7 pound 6 ounce infant. PAST MEDICAL HISTORY: 1. Anxiety for which she takes no medications. 2. Hypothyroid for which she takes thyroid replacement and she sees Dr. Jon. PAST SURGICAL HISTORY: Unremarkable. CURRENT MEDICATIONS: Thyroid replacement. ALLERGIES: No known allergies. SOCIAL HISTORY: She denies tobacco, alcohol, or drug use. REVIEW OF SYSTEMS: Denies nausea, vomiting, fever or chills. PHYSICAL EXAMINATION: VITAL SIGNS: Stable and she is afebrile. ABDOMEN: Soft and nontender. PELVIC: Examination by the labor nurse shows the cervix to be 5 cm, which is unchanged from her prev ious exam. heart tones of both twins A and B are stable. No uterine activity is seen on monitoring. The patient remains comfortable and shows no symptoms of contractions. ASSESSMENT: 1. A 36 week twin intrauterine . 2. No evidence of active labor at this time. PLAN: At this time, I have discussed these findings with Dr. Dang and the decision has been made to send the patient home. She was given complete labor precautions and she voiced understanding of gen vallejo.
[2017-09-07] MEDS: HYDROcodone/Acetaminophen 5/325 mg Tablet PO PRN ×2 (00:59→23:05)
[2017-09-07] MEDS: Levothyroxine 150 MCG TAB PO SCH (05:50)
[2017-09-07] MEDS: Ibuprofen 800 MG TAB PO SCH ×3 (05:50→21:54)
[2017-09-07 05:56] LABS: Mean Corpuscular HGB CONC 33.2 g/dL (32.0-36.0); Mean Corpuscular Hemoglobin 30.6 pg (27.0-31.0); Mean Corpuscular Volume 92.1 fl (81.0-99.0); Platelet Count 176 thou/uL (130-400); RBC Distribution Width 14.6 % (11.5-14.5); Red Blood Cell (RBC) Count 3.28 mill/uL (4.20-5.40); White Blood Cell (WBC) Count 12.5 thou/uL (4.8-10.8)
[2017-09-07] MEDS: Lactated Ringer's 1,000 ML IV SCH ×3 (06:36→21:49)
--- NOTE | 2017-09-07 07:36 | PDOC.PP ---
Post Progress Note Post Day #: 1 Subjective: Doing well, no complaints. Pumping after feedings. PO intake tolerated: yes Ambulation: yes Vital Signs (12 hours) Temp Pulse Resp BP 09/07/17 04:00 98.8 F 82 16 113/56 L 09/07/17 00:00 98.9 F 90 16 131/74 09/06/17 20:00 99.3 F 101 H 20 136/63 Weight Weight 220 lb - Physical Examination General: NAD Respiratory: non-labored breathing Abdominal: lochia (normal), no distention, appropriately TTP Fundus firm & at: U-4 Neurological: no gross focal deficits Psychiatric: A&Ox3, normal affect Result Diagrams: 09/07/17 05:10 Additional Labs: Post Labs Hep Bs Antigen Non-Reactive S/CO (NonReactive) 09/06/17 14:15 (1) , twin, delivered Code(s): O30.009 - TWIN , UNSP NUM PLCNTA & AMNIO SACS, UNSP TRIMESTER Status: Acute - Assessment/Plan Continue routine care. D/c tomorrow.
[2017-09-07] MEDS: Docusate Calcium (SURFAK) 240 MG CAP PO SCH ×2 (09:23→21:53)
[2017-09-07] MEDS: Prenatal Vitamin 1 TAB PO SCH (09:23)
[2017-09-07] MEDS: Ferrous Sulfate 325 MG TAB PO SCH ×2 (09:24→18:05)
[2017-09-07 21:12] VITALS: TEMP 99.2
--- NOTE | 2017-09-08 05:38 | PDOC.EVN ---
Event Note - Event Note Event Note: DISCHARGE NOTE: Admission: 09/06/17 Discharge: 09/08/17 Diagnosis: Twins, vaginal delivery, Breech extraction twin B Procedures: vaginal delivery, breech extraction Patient seen and examined. patient is S/P twin and doing well. S. No new issues. Desires dsch. Using the breast pump. O. VSS afebrile.TMax 99.2 Labs: HCT 30 Physical: NAD, abd sot, NT Assessment/Plan: PPD2 s/p twins, ok for PM dsch today. Motrin prn at home. F /U [facility] in 4-6 weeks.
[2017-09-08] MEDS: Ibuprofen 800 MG TAB PO SCH ×2 (05:54→13:41)
[2017-09-08] MEDS: Levothyroxine 150 MCG TAB PO SCH (05:54)
[2017-09-08 09:04] VITALS: BP 137/86
[2017-09-08] MEDS: Docusate Calcium (SURFAK) 240 MG CAP PO SCH (09:20)
[2017-09-08] MEDS: Prenatal Vitamin 1 TAB PO SCH (09:20)
[2017-09-08] MEDS: Ferrous Sulfate 325 MG TAB PO SCH ×2 (09:21→16:38)
[2017-09-08] MEDS: Lactated Ringer's 1,000 ML IV SCH (09:21)
== END 2017-09-08 17:30 | disposition home or self-care (01) | DRG 775 ==
LOC: L&D/OP 12:37 → L&D 14:14 → 3SW 17:52
PROVIDERS: ADMIT Student in an Organized Health Care Education/Training Program; ATTEND Student in an Organized Health Care Education/Training Program
PROC: 10D07Z8 Extraction of Products of Conception, Other, Via Natural or Artificial Opening (ICD-10-PCS; principal; 2017-09-06)
PROC: 10E0XZZ Delivery of Products of Conception, External Approach (ICD-10-PCS; 2017-09-06)
DX: O32.8XX2 Maternal care for other malpresentation of fetus, fetus 2 (principal); Z37.2 Twins, both liveborn; O30.043 Twin pregnancy, dichorionic/diamniotic, third trimester; Z3A.36 36 weeks gestation of pregnancy
CPT/HCPCS: 36415; 51702; 76815; 85027; 86780; 87340; 88307; 90715; J0595; J2540; J2590; J3010; J3490; J7050; J7120; S0020

== ENCOUNTER 2017-10-06 10:27 | Emergency (ER) | payer BC, OTHER ==
[~2017-10-06 10:27] MED LIST changes: -Bupivacaine 0.25% HCL 30 ML VIAL ONE; -Bupivacaine PF 0.5% 30 ML VIAL ONE; +ISOVUE-370 76%-LOCM 1 ML ONE; +Iopamidol 370 76% 50 ML VIAL FS ONE
[2017-10-06 11:39] LABS: Bilirubin Negative (Negative); Blood, Urine Small (Negative); Clarity CLEAR (Clear); Glucose, Urine (Dipstick) Negative (Negative); Leukocyte Moderate (Negative); Nitrite Negative (Negative); Protein, Urine (Dipstick) Negative (Neg-Trace); Specific Gravity, Urine 1.013 (1.002-1.036); Urobilinogen 0.2 mg/dL (0.2-1.0)
[2017-10-06 11:47] LABS: Bacteria/HPF None Seen HPF (None Seen); Hyaline Casts/LPF 0-3 HYALINE CAST LPF (0-3 Hyaline); Squamous Epithelial 0-3 HPF (0-3)
[2017-10-06 11:55] LABS: #Eosinphils 0.1 thou/uL (0.0-0.7); #Lymphocytes 1.2 thou/uL (1.20-3.40); #Monocytes 0.4 thou/uL (0.11-0.59); #Neutrophils 11.4 thou/uL (1.40-6.50); %Basophils 0.1 % (0.0-1.0); %Eosinophils 0.9 % (0.0-10.0); %Lymphocytes 9.4 % (21.0-51.0); %Monocytes 3.1 % (0.0-10.0); %Neutrophils 86.5 % (42.0-75.0); Hemoglobin 13.4 g/dL (12.0-16.0); Mean Corpuscular HGB CONC 32.9 g/dL (32.0-36.0); Mean Platelet Volume 6.9 fL (7.4-10.4); Platelet Count 249 thou/uL (130-400); RBC Distribution Width 13.5 % (11.5-14.5); Red Blood Cell (RBC) Count 4.64 mill/uL (4.20-5.40); White Blood Cell (WBC) Count 13.2 thou/uL (4.8-10.8)
[2017-10-06 12:16] LABS: ALT (SGPT) 17 U/L (8-55); AST (SGOT) 17 U/L (5-34); Albumin 4.1 g/dL (3.5-5.0); Alkaline Phosphatase 111 U/L (40-150); Anion Gap 12 mmol/L (10-20); BUN (Urea Nitrogen) 18 mg/dL (7.0-18.7); Bilirubin, Total 0.3 mg/dL (0.2-1.2); Calc. Creatinine Clearance 0 mL/min (70-130); Calcium 9.4 mg/dL (7.8-10.44); Carbon Dioxide 27 mmol/L (22-29); Chloride 105 mmol/L (98-107); Estimated GFR-MDRD Greater than 90; Globulin 2.8 g/dL (2.4-3.5); Glucose 99 mg/dL (70-105); Lipase 22 U/L (8-78); Potassium 3.8 mmol/L (3.5-5.1); Protein, Total 6.9 g/dL (6.0-8.3); Sodium 140 mmol/L (136-145)
[2017-10-06] MEDS ORDERED: Morphine 4 MG/ML VIAL ONE (12:20)
--- NOTE | 2017-10-06 13:43 | CT ---
CT ABDOMEN WITH CONTRAST CT PELVIS WITH CONTRAST: DATE: 10/06/17. HISTORY: A 27-year-old female with generalized severe abdominal pain. COMPARISON: None. TECHNIQUE: IV injection of iodinated contrast media: Isovue. Oral contrast media: p.o. Isovue. FINDINGS: The cecum is medialized, located in the anterior aspect of the mid abdominal cavity. Enteric contras t material is present within a narrow lumen of a short, noninflamed appendix. Moderate volume of col onic stool. No signs of acute colonic diverticulitis. No small bowel dilation. The abdominal aorta , pancreas, adrenals, liver, and spleen are normal. There are 2 tiny calculi in the upper pole calyc es of the bilateral kidneys, one on each side, on the order of 2 mm in size each (these are only visi ble on coronal image 96 of 155, series 601; not visualized on the axial images). Otherwise, the kidn eys are normal. No pleural effusion, ascites, or pneumoperitoneum. Distended, but otherwise normal urinary bladder. Uterine fundus is to the right of midline. No adnexal solid or cystic mass identif ied. IMPRESSION: 1. Mild bilateral nephrolithiasis without obstructive uropathy. 2. Otherwise, negative. JAYLA Pablo POS: [facility]
== END 2017-10-06 15:25 | disposition home or self-care (01) ==
LOC: ERS 10:27
DX: O86.20 Urinary tract infection following delivery, unspecified (principal); O99.285 Endocrine, nutritional and metabolic diseases complicating the puerperium; E03.9 Hypothyroidism, unspecified
CPT/HCPCS: 74177; 80053; 81003; 81015; 83690; 85025; 96361; 96374; 96375; J2270

== ENCOUNTER 2017-10-09 22:47 | Inpatient (IN) | payer BC, OTHER ==
[2017-10-09 23:39] LABS: #Eosinphils 0.1 thou/uL (0.0-0.7); #Lymphocytes 1.1 thou/uL (1.20-3.40); #Monocytes 0.6 thou/uL (0.11-0.59); #Neutrophils 8.6 thou/uL (1.40-6.50); %Basophils 0.1 % (0.0-1.0); %Eosinophils 0.7 % (0.0-10.0); %Lymphocytes 10.9 % (21.0-51.0); %Monocytes 5.3 % (0.0-10.0); Hemoglobin 12.8 g/dL (12.0-16.0); Mean Corpuscular Hemoglobin 28.7 pg (27.0-31.0); Mean Corpuscular Volume 89.6 fl (81.0-99.0); Platelet Count 259 thou/uL (130-400); RBC Distribution Width 13.5 % (11.5-14.5); Red Blood Cell (RBC) Count 4.45 mill/uL (4.20-5.40); White Blood Cell (WBC) Count 10.4 thou/uL (4.8-10.8)
[2017-10-10 00:09] LABS: ALT (SGPT) 18 U/L (8-55); AST (SGOT) 15 U/L (5-34); Albumin 4.3 g/dL (3.5-5.0); Alkaline Phosphatase 105 U/L (40-150); Anion Gap 12 mmol/L (10-20); BUN (Urea Nitrogen) 12 mg/dL (7.0-18.7); Bilirubin, Total 0.4 mg/dL (0.2-1.2); Calc. Creatinine Clearance 0 mL/min (70-130); Calcium 9.3 mg/dL (7.8-10.44); Carbon Dioxide 27 mmol/L (22-29); Chloride 103 mmol/L (98-107); Estimated GFR-MDRD 88; Globulin 3.1 g/dL (2.4-3.5); Glucose 101 mg/dL (70-105); Potassium 3.6 mmol/L (3.5-5.1); Protein, Total 7.4 g/dL (6.0-8.3); Sodium 138 mmol/L (136-145)
[2017-10-10] MEDS ORDERED: Acetaminophen 325 MG TAB ONE ×2 (01:12→01:23)
[2017-10-10 02:48] LABS: Bilirubin Negative (Negative); Blood, Urine Trace (Negative); Clarity CLEAR (Clear); Glucose, Urine (Dipstick) Negative (Negative); Leukocyte Trace (Negative); Nitrite Negative (Negative); Protein, Urine (Dipstick) Negative (Neg-Trace); Specific Gravity, Urine 1.008 (1.002-1.036); Urobilinogen 0.2 mg/dL (0.2-1.0); pH, Urine 6.5 (5.0-9.0)
[2017-10-10 02:51] LABS: Bacteria/HPF None Seen HPF (None Seen); Hyaline Casts/LPF 0-3 HYALINE CAST LPF (0-3 Hyaline); Pathc Cast-AUWi Flag 1.01 (0-2.49); Squamous Epithelial 0-3 HPF (0-3); WBC/HPF 0-3 HPF (0-3)
[2017-10-10 02:53] LABS: Oval Fat Bodies/HPF None Seen HPF (None Seen); Renal Epithelial None Seen HPF (0-3); Sperm/HPF None Seen HPF (None Seen); Transitional Epithelial NONE SEEN HPF (0-3); Trichomonas/HPF None Seen HPF (None Seen); Yeast-All Forms None Seen HPF (None Seen)
[2017-10-10] MEDS ORDERED: Ondansetron ODT 4 MG TAB SL PRN ×2 (06:22→10:44)
[2017-10-10] MEDS ORDERED: Acetaminophen 325 MG TAB PO PRN ×2 (06:22→10:44)
[2017-10-10] MEDS ORDERED: Sodium Chloride 0.9% 1,000 ML IV SCH (06:22)
[2017-10-10] MEDS ORDERED: HYDROcodone/Acetaminophen 5/325 mg Tablet PO PRN ×4 (06:22→10:45)
[2017-10-10] MEDS ORDERED: Ondansetron HCl/PF 4 MG/2 ML Vial IVP PRN ×2 (06:22→10:44)
[2017-10-10 07:48] VITALS: BMI 32.5
--- NOTE | 2017-10-10 08:10 | RAD ---
PORTABLE CHEST: Date: 10/10/17 HISTORY: Fever. FINDINGS: Lung sanders are clear. Heart and mediastinum appear normal. IMPRESSION: No acute abnormality. POS: [facility]
--- NOTE | 2017-10-10 11:22 | ULT ---
BILATERAL LOWER EXTREMITY VENOUS DUPLEX STUDY: Date: 10/10/17 Deep veins of both lower extremities evaluated with color Doppler, spectral analysis, and compression . INDICATION: Lower extremity pain and mild edema. Recent vaginal delivery. FINDINGS: Deep veins of both lower extremities show normal compression and blood flow. No evidence of deep veno us thrombosis. IMPRESSION: No evidence of lower extremity deep venous thrombosis. POS: [facility]
[2017-10-10] MEDS ORDERED: Guaifenesin DM 100-10/5 ML UDCUP PO PRN (11:26)
[2017-10-10] MEDS ORDERED: Senokot 8.6 MG TAB PO PRN (11:26)
--- NOTE | 2017-10-10 11:34 | ULT ---
PELVIC ULTRASOUND: 10/10/2017 HISTORY: Persistent fever. Recent twin delivery. UTI. TECHNIQUE: Multiple transabdominal sonographic images of the pelvis are obtained. Endovaginal imaging is not pe rformed. FINDINGS: The uterus demonstrates a normal sonographic appearance with a homogeneous echotexture, measuring 13. 1 cm x 6.4 cm x 3.7 cm. The endometrial stripe measures 0.3 cm in thickness, which is within normal limits. No fluid or fluid collection is seen in the endometrial canal. The right ovary is not visualized on this exam. The left ovary is visualized and demonstrates a norm al sonographic appearance for transabdominal imaging and measures 2.8 cm x 1.7 cm x 1.6 cm. Doppler evaluation of the left ovary with spectral analysis and color-flow evaluation demonstrates ar terial flow. No free fluid is seen in the cul-de-sac. IMPRESSION: 1. Normal appearing uterus and left ovary. 2. Endometrial stripe is normal in thickness, and no fluid or fluid collection is seen in the endome trial canal. 3. Nonvisualization of the right ovary. 4. The urinary bladder is distended and has a normal sonographic appearance. POS: [facility]
[2017-10-10] MEDS ORDERED: Piperacillin/Tazobactam 4.5 GM in Sodium Chloride 0.9% 100 ML IVPB SCH (12:00)
--- NOTE | 2017-10-10 13:29 | CON ---
DATE OF CONSULTATION: 10/10/2017 REASON FOR CONSULTATION: Fever and breast pain. HISTORY OF PRESENT ILLNESS: This is a 27-year-old G2, P3, status post term vaginal delivery approxim ately 5 weeks ago of twins at 36 weeks gestation. She had an uncomplicated course up unti l several weeks ago developed a urinary tract infection and took Macrobid. She had recurrence of her UTI symptoms shortly after the Macrobid, mainly with abdominal pain. She presented to the ER last S unday, was diagnosed with persistent UTI and was started on Keflex, which she took 2 days of and then on Saturday of this week began having high fevers to 103, persistent headache and increasing left b reast pain. She denies any redness to the breast tissue, but reports this painful area on her breast is exquisitely painful radiating to the axilla and is worse when she is pumping. She denies any upp er respiratory symptoms, diarrhea, nausea or vomiting. She reports her abdominal pain is resolved. She has minimal to no vaginal bleeding. She has no urinary symptoms including no dysuria, urinary fr equency or hematuria. She denies any lower extremity swelling or sick contacts. REVIEW OF SYSTEMS: Twelve-point review of systems is negative except as noted in the HPI. CURRENT MEDICATIONS: 1. Tylenol p.r.n. 2. Lovenox 40 daily. 3. Pepcid 20 mg b.i.d. 4. Robitussin p.r.n. 5. Synthroid 150 p.o. daily. 6. Zosyn. 7. vitamins. 8. Senokot p.r.n. ALLERGIES: No known drug allergies. PAST MEDICAL HISTORY: Hypothyroidism and PCOS. PAST SURGICAL HISTORY: Denies. SOCIAL HISTORY: Negative x3. FAMILY HISTORY: Noncontributory. PHYSICAL EXAMINATION: VITAL SIGNS: T-max is 103.3, pulse is 107, temperature current is 99, respirations 18, pulse ox 98% on room air and blood pressure 111/62. GENERAL: No acute distress. CARDIAC: Regular rate and rhythm. LUNGS: Clear to auscultation bilaterally. ABDOMEN: Soft, nontender and nondistended. BREAST: Bilateral breasts are pendulous. The right breast has no erythema, warmth, mass or firm are as. The left breast has approximately 2 cm fluctuant mass at approximately 2:00 that is exquisitely tender to palpation. There is no overlying erythema. The remainder of the breasts are within normal limits. EXTREMITIES: No edema, cyanosis or clubbing. LABORATORY AND IMAGING DATA: White blood cell count 10.4, hematocrit 39.9 and platelets 259. Chemis tries are normal. LFTs are normal. UA is essentially negative. Chest x-ray is negative. Pelvic ul trasound is normal and venous duplex ultrasound of the bilateral lower extremities is negative. Izzy st ultrasound is pending. ASSESSMENT AND PLAN: This is a 27-year-old 5 weeks from twin vaginal delivery, now presen ting with breast pain, mass on breast exam and high fevers, suspected mastitis versus breast abscess. Based on breast ultrasound, may or may not need General Surgery consultations for incision and charlene rosa. Agree with antibiotic therapy, should cover for methicillin-resistant Staphylococcus aureus se condary to the patient has been on Keflex x48 hours with persistence of her fever and this would be w ith vancomycin. This is safe with and the patient does not need to interrupt her pumpi ng and giving her babies milk. This was discussed with the primary physician and the patient as well .
--- NOTE | 2017-10-10 13:33 | HP ---
REASON FOR ADMISSION/CHIEF COMPLAINT: Sepsis, possible mastitis on the left, urinary tract infection. HISTORY OF PRESENT ILLNESS: The patient gives history of having fever of 101 yesterday evening. She tried taking Motrin, but despite that the fever jumped up to 103. She has in fact come to the ER twice before for recurrent UTIs. The patient states she had a catheter while giving on 09/06/2017, where she delivered twin boys. On the , the patient came to ER and was given Macrobid for suspected urinary tract infection. She took this for 10 days. Five days later, the patient started to have abdominal pain. She thought it could be her appendix and came back to the ER. She was told that she has severe urinary tract infection and was given Keflex 500 mg twice daily. She has taken this for 2 days. The patient also complains of left breast, left upper quadrant pain. She is using a breast pump every 3 hours to feed her twins. She does not have any increased frequency or urgency of urination at present. The patient states her lochia has completely stopped and is not having any abnormal discharge from her vagina. She delivered twins on 2017 after 36 weeks and 2 days of . The 2 boys are doing well. From last 4 days she has also started them on powdered milk to supplement her breast milk. PAST MEDICAL/SURGICAL HISTORY: Hypothyroidism. Twin delivery on 09/06/2017 after 36 weeks of , UTI from last 2-1/2 weeks or so now, having taken Macrobid then Keflex for the past 2 days, polycystic ovary syndrome, has a 3- year-old girl from prior normal delivery. CURRENT MEDICATIONS: Keflex 500 mg p.o. twice daily, multivitamin 1 tab once daily, levothyroxine 150 mcg p.o. daily. ALLERGIES: No known drug allergies. PERSONAL HISTORY: Does not abuse alcohol or drugs. No history of smoking. FAMILY HISTORY: Both parents have hypertension. Mother also has dyslipidemia. REVIEW OF SYSTEMS: The following complete review of systems was negative, unless otherwise mentioned in the HPI or below: Constitutional: Weight loss or gain, ability to conduct usual activities. Skin: Rash, itching. Eyes: Double vision, pain. ENT/Mouth: Nose bleeding, neck stiffness, pain, tenderness. Cardiovascular: Palpitations, dyspnea on exertion, orthopnea. Respiratory: Shortness of breath, wheezing, cough, hemoptysis, fever or night sweats. Gastrointestinal: Poor appetite, abdominal pain, heartburn, nausea, vomiting, constipation, or diarrhea. Genitourinary: Urgency, frequency, dysuria, nocturia. Musculoskeletal: Pain, swelling. Neurologic/Psychiatric: Anxiety, depression. Allergy/Immunologic: Skin rash, bleeding tendency. PHYSICAL EXAMINATION: GENERAL: The patient is a 27-year-old female who is currently not in any acute distress. VITAL SIGNS: Blood pressure 130/86, pulse 110 per minute, respiratory rate 18 per minute, temperature on arrival was 103, saturating 100% on room air. NECK: Supple, no elevated JVD. HEENT: Eyes; extraocular muscles intact. Pupils reacting to light. Oral cavity; mucous membranes are moist. No exudates or congestion. CARDIOVASCULAR: S1, S2 heard. Regular rhythm. RESPIRATORY: Air entry 2+ bilateral. No rales or rhonchi. ABDOMEN: Soft. Bowel sounds heard. No tenderness, rigidity or guarding. No CVA angle tenderness. BREASTS: Left upper quadrant of left breast there is mild tenderness, but no obvious fluctuant mass is felt. There is no erythema or induration felt. EXTREMITIES: No peripheral edema or calf tenderness. VASCULAR SYSTEM: Peripheral pulses 1+ bilateral, no ischemic ulcerations or gangrene. CENTRAL NERVOUS SYSTEM: No gross focal deficits seen. Patient is alert, awake , and oriented well. PSYCHIATRIC: The patient's mood is euthymic. No hallucinations or delusions. LABORATORY AND X-RAY FINDINGS: White count of 10, H&H 12 and 39, platelet count 259 with 83% neutrophils, MCV is 89. Electrolytes are stable. BUN 12, creatinine 0.7, glucose 101. Liver enzymes are within normal limits. Albumin is 4.3, total beta hCG is less than 1.20. UA shows trace leukoesterase with 0- 3 WBC's, no bacteria seen. There is no trichomoniasis species seen in the urine. Influenza A and B antigens are negative. Ultrasound venous Doppler of lower extremities shows no evidence of DVT. Ultrasound of the pelvis shows endometrial stripe to be of normal thickness with no fluid collection seen in the endometrial canal. Left ovary was normal. Chest x-ray done shows no acute cardiopulmonary abnormalities. CLINICAL IMPRESSION AND PLAN: The patient will be admitted to medical floor for sepsis, likely left breast mastitis and ongoing urinary tract infection. The patient had a fever of up to 103 on arrival. Momin cultures have been obtained including blood, urine, and left breast milk cultures as well. She will be on vancomycin and Zosyn. Based on the left breast ultrasound findings, we will consult General Surgery if there is finding of fluctuant mass. Marcellus parker for pain. We will continue her multivitamin, levothyroxine for now. Her BLACKING MACHINE OPERATOR, Dr. Katie Dang has evaluated the patient on the floor. Dr. Pittman has been consulted for Infectious Disease. We will continue to closely monitor her on medical floor. Her antibiotics will be switched once the cultures are available. Likely her urine culture may not grow with her being on Macrobid for 10 days and 2 days of Keflex now. MTDD
[2017-10-10] MEDS ORDERED: Vancomycin HCl 1.25 GM, Admixture Fee 1 EACH in Sodium Chloride 0.9% 250 ML 250 ML IVPB SCH (14:00)
--- NOTE | 2017-10-10 14:09 | ULT ---
LIMITED ULTRASOUND LEFT BREAST: 10/10/2017 HISTORY: Patient with left breast tenderness and redness. Fever of 103. FINDINGS: Limited sonographic evaluation of the left breast was performed with comparison images of the right b reast obtained. There is a nonspecific area of heterogeneity seen at the 2 o'clock and 3 o'clock positions of the lef t breast, which is asymmetric compared to the contralateral right breast, and there is also increased flow in this region on color-flow evaluation, when compared to other regions of the left breast, as well as the right breast. There is no fluid collection seen to suggest abscess formation. No obviou s discrete mass is visualized. IMPRESSION: Asymmetric area of heterogeneity in the left breast at the 2 o'clock and 3 o'clock positions. No bor elsa-forming margins are present. There is increased vascular flow in this region on color-flow evalu ation, compared to the right breast. No fluid collection is seen to suggest an abscess. However, fi ndings could be related to either an infectious or an inflammatory process. Follow-up evaluation is recommended to ensure resolution of the area of heterogeneity. While a neoplastic process cannot be excluded, this is thought less likely but, again, followup is recommended. POS: ASHLEIGH
[2017-10-10] MEDS: Ibuprofen 200 MG TAB PO PRN (14:29)
[2017-10-10] MEDS: Acetaminophen 325 MG TAB PO PRN ×2 (14:33→23:59)
[2017-10-10] MEDS ORDERED: Iopamidol 370 76% 50 ML VIAL FS ONE (16:27)
[2017-10-10] MEDS ORDERED: ISOVUE-370 76%-LOCM 1 ML ONE (16:27)
[2017-10-10] MEDS: Sodium Chloride 0.9% 1,000 ML IV SCH (17:32)
--- NOTE | 2017-10-10 18:57 | CON ---
DATE OF CONSULTATION: 10/10/2017 CHIEF COMPLAINT: Fever. HISTORY: A 27-year-old female who had a spontaneous vaginal delivery of twins on 09/06/2017 started having left breast pain and fever yesterday up to 101, now it is up to 103. She does have a history of frequent UTIs. PAST MEDICAL HISTORY: Significant for hypothyroidism. PAST SURGICAL HISTORY: None. MEDICATIONS: She is on Keflex twice a day, multivitamins, levothyroxine. ALLERGIES: She has no known drug allergies. FAMILY HISTORY: Hypertension and dyslipidemia. SOCIAL HISTORY: , no tobacco, no alcohol. PHYSICAL EXAMINATION: VITAL SIGNS: Temperature is 103.3, pulse 120, and blood pressure 102/58. GENERAL: This is a well-developed, well-nourished female. She does not look to be in any distress. HEENT: Otherwise, unremarkable. LUNGS: Clear. HEART: Regular rate and rhythm. BREASTS: She is currently lactating. She does have breast engorgement. There is no skin erythema. There is mild tenderness in the left upper outer breast with some induration, but no fluctuance. Ap parently the networking specialist had her do some breast pumping and it feels better to her and the l actation specialist did not feel there was any infection going on other than perhaps some mild mastit is. ABDOMEN: Soft, nondistended, nontender. EXTREMITIES: Unremarkable. LABORATORY AND X-RAY FINDINGS: Her white count is 10.4, H and H 12 and 39, platelet count 259. Elec trolytes are normal. Her urinalysis showed trace leukocyte esterase, 4-6 red cells, 0-3 white cells. She had a breast ultrasound that showed asymmetric heterogeneity in the left breast at 2 o'clock an d 3 o'clock. There are no border margins. There is increased vascular flow, but they did not see an abscess. ASSESSMENT: Some deep mastitis, but no abscess, no surgery needed at this time. Recommend antibioti c therapy and breast pumping.
[2017-10-10] MEDS: Meropenem 1 GM in Sodium Chloride 0.9% 100 ML IVPB SCH (20:47)
[2017-10-10] MEDS ORDERED: Vancomycin HCl 1 GM in Premix Bag 1 BAG IVPB SCH (21:00)
--- NOTE | 2017-10-10 21:59 | CT ---
ABDOMEN AND PELVIC CT SCAN WITH IV CONTRAST: 10/10/17 HISTORY: 27-year-old female with abdominal pain and fever with worsening pain and clinical concern for an absc ess. COMPARISON: 10/06/17. FINDINGS: Patchy mostly pleural based linear parenchymal change in both lung bases posteriorly, evidence for gonzalez bsegmental atelectasis progressive from prior study. The gallbladder is somewhat contracted. The live r, pancreas, and borderline sized spleen are unremarkable and stable. Adrenal glands are unremarkable . Again noted are very tiny nonobstructing bilateral renal calculi. Uterus and adnexal regions unrema rkable. No abscess, adenopathy or abnormal fluid collection. No CT evidence for acute appendicitis. IMPRESSION: Some developing linear primarily pleural based parenchymal changes in the lung bases, evidence for gonzalez bsegmental atelectasis. Stable nonobstructing tiny renal calculi. Borderline sized but stable spleen. No CT evidence for acute appendicitis. No evidence for acute obstruction. No evidence for abscess or abnormal fluid collection. POS: ASHLEIGH
[2017-10-10] MEDS: Famotidine 20 MG TAB PO SCH (23:43)
--- NOTE | 2017-10-11 00:23 | CON ---
DATE OF CONSULTATION: 10/10/2017 REASON FOR CONSULTATION: Fever. HISTORY OF PRESENT ILLNESS: A 27-year-old patient who has a history of hypothyroidism and clean vaginal delivery at the beginning of September this year. The shoulder had to be retained in the hospital because of prematurity and then about a week later, she developed some urinary symptoms with dysuria and urinary frequency and she was given Macrobid with some improvement, but then recrudescence of symptoms treated with Keflex. Then, she developed a protracted episode of right flank pain, which is quite intense in the ladder to come to the emergency room. She was told that she had a UTI and was given Keflex and she did not improve and therefore was brought in for evaluation and treatment thus far, she has remained febrile up to 103. Abdominal pain seems to have improved. She denies any headaches, no visual symptoms, sore throat, odynophagia, or dysphagia. No ear or nasal symptoms. No back pain, no cough or sputum production, no chest pain, no dyspnea. Dysuria has improved somewhat. No joint symptoms. No neurological symptoms. PAST MEDICAL HISTORY: Hypothyroidism, lives in twin delivery, polycystic ovarian syndrome, she has a prior vaginal delivery. CURRENT MEDICATIONS: Include Zosyn and vancomycin, and p.r.n. meds. She is also on Lovenox prophylaxis, levothyroxine, IV fluids. ALLERGIES: None. SOCIAL HISTORY: Never a smoker. , lives in the area. FAMILY HISTORY: Hypertension. PHYSICAL EXAMINATION: GENERAL: Somewhat diaphoretic. VITAL SIGNS: T-max 103.3 recently, now 100.6, blood pressure 102/58, pulse 120 , respirations 22. SKIN: Not remarkable. The breast area does not appear to have any inflammatory changes. No lymphadenopathy. HEENT: Ocular movements are conjugate. Nasal and ear exam normal. Oral cavity normal. Teeth in good shape. NECK: Supple, no jugular vein distention or carotid bruits. LUNGS: With symmetric air entry. HEART: S1, S2, no S3 or S4, regular rate. ABDOMEN: Has the usual 1 month appearance after delivery, she has mild tenderness in the right flank area. No rebound tenderness. No guarding, no evidence of ascites, no organomegaly or bladder distention. Perineal: Normal. EXTREMITIES: No joint inflammatory activity noted. The patient is able to move extremities equally. Plantar responses are flexure. No clonus. NEUROLOGIC: Cognitive function appears to be intact. LABORATORY DATA: White cell count 10.4, hemoglobin 12.8, platelets 259 with 82 % neutrophils. Chemistry is completely normal. Urinalysis with 0-3 wbc's. Previous urinalysis from 10/06 with 11-20 wbc's. She has a negative syphilis serology. Microbiology: We have group B strep from the vaginal screen, urine culture from 10/10/2017, no growth at 12 hours. No urine culture was submitted on 10/06, once we initially looked into the emergency room. Influenzae A and B negative. IMAGING STUDIES: Include breast ultrasound, which showed asymmetric area of heterogeneity in the left breast, but no margins are present. No fluid collections noted. There is a pelvis ultrasound, which showed a normal appearing uterus and left ovary, normal endometrial stripe without any fluid collections. Urinary bladder appear to be distended. Normal appearance. Venogram showed no DVT. Chest x-ray showed normal findings. ASSESSMENT: 1. 1-month following delivery of twins. 2. Symptoms indicative of cystitis recently treated in the outpatient setting with some improvement, but then recrudescence. 3. Abdominal pain in the flank area. 4. Persistent fever, mild neutrophilia. DISCUSSION: Differential diagnosis includes pyelonephritis versus an alternate inflammatory abdominal process. Bacteremia, with possible obstruction of the right kidney needs to be considered. Mastitis appears to be less likely based on my physical examination findings. We will order an abdomen and pelvis CT scan with contrast and switch her to meropenem, continue vancomycin, discontinue Zosyn. DORID
[2017-10-11] MEDS: Vancomycin HCl 1.25 GM, Admixture Fee 1 EACH in Sodium Chloride 0.9% 250 ML 250 ML IVPB SCH ×3 (00:25→16:24)
[2017-10-11] MEDS: Sodium Chloride 0.9% 1,000 ML IV SCH ×4 (00:29→16:50)
[2017-10-11] MEDS: Meropenem 1 GM in Sodium Chloride 0.9% 100 ML IVPB SCH ×3 (04:30→20:27)
[2017-10-11 05:40] LABS: #Eosinphils 0.3 thou/uL (0.0-0.7); #Monocytes 0.5 thou/uL (0.11-0.59); #Neutrophils 4.1 thou/uL (1.40-6.50); %Basophils 0.3 % (0.0-1.0); %Eosinophils 4.8 % (0.0-10.0); %Lymphocytes 29.2 % (21.0-51.0); %Monocytes 7.4 % (0.0-10.0); %Neutrophils 58.3 % (42.0-75.0); Hemoglobin 10.4 g/dL (12.0-16.0); Mean Corpuscular HGB CONC 32.3 g/dL (32.0-36.0); Mean Corpuscular Hemoglobin 28.6 pg (27.0-31.0); Mean Corpuscular Volume 88.7 fl (81.0-99.0); Mean Platelet Volume 6.9 fL (7.4-10.4); Platelet Count 184 thou/uL (130-400); RBC Distribution Width 13.2 % (11.5-14.5); Red Blood Cell (RBC) Count 3.64 mill/uL (4.20-5.40)
[2017-10-11 06:01] LABS: ALT (SGPT) 33 U/L (8-55); AST (SGOT) 38 U/L (5-34); Albumin 3.3 g/dL (3.5-5.0); Alkaline Phosphatase 80 U/L (40-150); Anion Gap 10 mmol/L (10-20); BUN (Urea Nitrogen) 8 mg/dL (7.0-18.7); Bilirubin, Total 0.3 mg/dL (0.2-1.2); Calc. Creatinine Clearance 189 mL/min (70-130); Calcium 8.3 mg/dL (7.8-10.44); Carbon Dioxide 24 mmol/L (22-29); Chloride 109 mmol/L (98-107); Estimated GFR-MDRD Greater than 90; Globulin 2.5 g/dL (2.4-3.5); Glucose 92 mg/dL (70-105); Potassium 3.3 mmol/L (3.5-5.1); Protein, Total 5.8 g/dL (6.0-8.3); Sodium 140 mmol/L (136-145)
[2017-10-11] MEDS: Levothyroxine 150 MCG TAB PO SCH (06:48)
[2017-10-11] MEDS: Prenatal Vitamin 1 TAB PO SCH (07:38)
[2017-10-11] MEDS: Famotidine 20 MG TAB PO SCH ×2 (07:38→21:34)
[2017-10-11] MEDS: Acetaminophen 325 MG TAB PO PRN (07:38)
[2017-10-11] MEDS: Enoxaparin Sodium 40 MG/0.4 ML SYRINGE SC SCH (07:39)
[2017-10-11] MEDS ORDERED: B2 PO SCH (09:00)
[2017-10-11] MEDS ORDERED: FOLIC ACID PO SCH (09:00)
[2017-10-11] MEDS ORDERED: B6 PO SCH (09:00)
[2017-10-11] MEDS ORDERED: B12 PO SCH (09:00)
[2017-10-11] MEDS ORDERED: VIT D3 PO SCH (09:00)
[2017-10-11 15:44] LABS: Vancomycin, Trough 13.5 ug/mL
[2017-10-11] MEDS: Vancomycin HCl 1.5 GM in Sodium Chloride 0.9% 250 ML 300 ML IVPB SCH (16:50)
[2017-10-12] MEDS: Vancomycin HCl 1.5 GM in Sodium Chloride 0.9% 250 ML 300 ML IVPB SCH ×3 (00:58→17:17)
--- NOTE | 2017-10-12 01:01 | PDOC.PN ---
- Subjective Encounter Start Date: 10/11/17 Encounter Start Time: 19:00 Subjective: nsg notes rev, eleonora ovn, pt wants to know if she can go home, states she -: hasn't had another fever today. SO at bedside. - Objective Resuscitation Status: Resuscitation Status FULL:Full Resuscitation Vital Signs & Weight: Vital Signs (12 hours) Temp Pulse Resp BP 10/11/17 17:44 99.1 F 71 20 146/88 H I&O: 10/10/17 10/11/17 10/12/17 06:59 06:59 06:59 Intake Total 4430 Output Total 3550 Balance 880 Result Diagrams: 10/11/17 04:49 10/11/17 04:49 Phys Exam - Physical Examination Constitutional: NAD HEENT: PERRLA, moist MMs, sclera anicteric, oral pharynx no lesions Respiratory: no wheezing, no rales, no rhonchi, clear to auscultation bilateral reasonable air mvmt Cardiovascular: RRR, no significant murmur, no rub Gastrointestinal: soft, positive bowel sounds Musculoskeletal: no edema, pulses present Neurological: moves all 4 limbs Psychiatric: normal affect, A&O x 3 Dx/Plan - Plan * fever * currently unclear etiology * apprec IC c/s * pending culture results * empiric abx * concern for mastitis vs bacteremia vs UTI post * concern for post depression complicated by acute medical issues * apprec obgyn c/s diet: as lawanda activity: as lawanda dvt ppx Review of Systems - Medications/Allergies Allergies/Adverse Reactions: Allergies Allergy/AdvReac Type Severity Reaction Status Date / Time No Known Allergies Allergy Verified 10/11/17 14:33 Medications: Current Medications Acetaminophen (Tylenol) 650 mg PO Q4H PRN PRN Reason: Headache/Fever or Pain Last Admin: 10/12/17 07:49 Dose: 650 mg Enoxaparin Sodium (Lovenox) 40 mg SC 0900 [facility] Last Admin: 10/12/17 07:53 Dose: Not Given Famotidine (Pepcid) 20 mg PO BID [facility] Last Admin: 10/12/17 09:00 Dose: 20 mg Guaifenesin/Dextromethorphan (Robitussin Dm) 15 ml PO Q4H PRN PRN Reason: Cough Sodium Chloride (Normal Saline 0.9%) 1,000 mls @ 100 mls/hr IV .Q10H [facility] Last Admin: 10/12/17 09:17 Dose: 1,000 mls Meropenem 1 gm/ Sodium (Chloride) 100 mls @ 200 mls/hr IVPB 0400,1200,2000 [facility] Last Admin: 10/12/17 04:34 Dose: 100 mls Vancomycin HCl 1.5 gm/ Sodium (Chloride) 300 mls @ 200 mls/hr IVPB 0100,0900, 1700 [facility] Last Admin: 10/12/17 09:13 Dose: 300 mls Ibuprofen (Motrin) 400 mg PO Q8H PRN PRN Reason: pain/fever Last Admin: 10/10/17 14:29 Dose: 400 mg Levothyroxine Sodium (Synthroid) 150 mcg PO 0600 [facility] Last Admin: 10/12/17 07:42 Dose: 150 mcg Multivit/Folic Acid/Iron ( Vitamin) 1 tab PO DAILY [facility] Last Admin: 10/12/17 09:00 Dose: 1 tab Senna (Senokot) 2 tab PO HSPRN PRN PRN Reason: Constipation Sodium Chloride (Flush - Normal Saline) 10 ml IVF Q12HR [facility] Last Admin: 10/12/17 09:00 Dose: Not Given Sodium Chloride (Flush - Normal Saline) 10 ml IVF PRN PRN PRN Reason: Saline Flush
[2017-10-12] MEDS: Acetaminophen 325 MG TAB PO PRN ×2 (01:14→07:49)
[2017-10-12] MEDS ORDERED: Sodium Chloride 0.9% 0 ML ONE (04:06)
[2017-10-12] MEDS: Meropenem 1 GM in Sodium Chloride 0.9% 100 ML IVPB SCH ×3 (04:34→20:44)
[2017-10-12] MEDS: Levothyroxine 150 MCG TAB PO SCH (07:42)
[2017-10-12] MEDS: Enoxaparin Sodium 40 MG/0.4 ML SYRINGE SC SCH (07:53)
[2017-10-12] MEDS: Prenatal Vitamin 1 TAB PO SCH (09:00)
[2017-10-12] MEDS: Famotidine 20 MG TAB PO SCH ×2 (09:00→20:44)
[2017-10-12] MEDS: Sodium Chloride 0.9% 1,000 ML IV SCH (09:17)
[2017-10-12] MEDS: Ibuprofen 200 MG TAB PO PRN (12:11)
--- NOTE | 2017-10-12 14:26 | PDOC.PN ---
- Subjective Encounter Start Date: 10/12/17 Encounter Start Time: 14:25 Subjective: suprapubic pain.. - Objective Resuscitation Status: Resuscitation Status FULL:Full Resuscitation Vital Signs & Weight: Vital Signs (12 hours) Temp Pulse Resp BP BP Pulse Ox 10/12/17 12:00 98.5 F 74 18 122/85 10/12/17 07:40 98.8 F 70 20 142/91 H 10/12/17 04:30 99.2 F 65 18 133/78 96 I&O: 10/11/17 10/12/17 10/13/17 06:59 06:59 06:59 Intake Total 4430 2206 480 Output Total 3550 2900 1100 Balance 209 -537 -322 Result Diagrams: 10/11/17 04:49 10/11/17 04:49 Phys Exam - Physical Examination Constitutional: NAD HEENT: sclera anicteric Neck: no JVD Respiratory: clear to auscultation bilateral Cardiovascular: RRR Gastrointestinal: soft Musculoskeletal: no edema Neurological: moves all 4 limbs Psychiatric: A&O x 3 Dx/Plan (1) Fever Code(s): R50.9 - FEVER, UNSPECIFIED Status: Acute Plan: f/u with ID. Comment: Afebrile today. BXC noticed. ?contamination (2) Hypokalemia Code(s): E87.6 - HYPOKALEMIA Status: Acute Plan: supplemented.. - Plan -: Continue current therapy.. * .
[2017-10-12] MEDS ORDERED: Potassium Chloride 20 MEQ TAB PO SCH (14:30)
--- NOTE | 2017-10-12 20:49 | PRG ---
DATE OF SERVICE: 10/12/2017 SUBJECTIVE: Feeling better. No headaches. No chest symptoms. No breast pain. Had recurrence of t he abdominal pain that she had felt previously, but that resolved quickly, voiding sometimes with a l ot of large volume and does not feel like she is retaining. No joint symptoms. OBJECTIVE: VITAL SIGNS: Showed improvement in temperature curve. BP 130/84, pulse 64 and respirations 18. GENERAL: Awake, alert and oriented. She is not diaphoretic anymore. HEENT: Ocular movements conjugate. NECK: Supple. LUNGS: Symmetric clear breath sounds. BREASTS: Normal with the expected findings in the . ABDOMEN: Mild to moderately distended, but not tender, soft. GENITOURINARY: Question of bladder distention. EXTREMITIES: No joint inflammatory activity. LABORATORY DATA: White blood cell count 7.0. Differential is normal. Platelets normal. Hemoglobin 10.4. AST 38, albumin 3.3, potassium 3.3 and cultures with Staph aureus from the breast fluid versu s a few Staph aureus, mostly mixed skin irene and influenza nasal swab was negative. IMAGING DATA: A CT scan showed no significant abnormalities except for minimal parenchymal changes i n lung bases and renal calculi, which was nonobstructing, borderline stable spleen. ASSESSMENT AND DISCUSSION: Delivery of twins a month ago with recent symptoms of cystitis followed b y recurrent episodes of flank pain and persistent fever. Although, CT did not show any inflammatory changes or pyelonephritis, the more likely scenario even in the face of normal urinalysis. An altern ate possibility would be a transient bacteremia, endometritis is likely, mastitis is unlikely. Chay nue Merrem. Discontinue vancomycin. Hopefully, eventually transition to oral antimicrobial therapy for discharge planning.
[2017-10-13] MEDS: Acetaminophen 325 MG TAB PO PRN (00:47)
[2017-10-13] MEDS: Sodium Chloride 0.9% 1,000 ML IV SCH ×3 (02:20→14:30)
[2017-10-13] MEDS: Meropenem 1 GM in Sodium Chloride 0.9% 100 ML IVPB SCH ×2 (04:40→12:24)
[2017-10-13] MEDS: Levothyroxine 150 MCG TAB PO SCH (06:20)
[2017-10-13] MEDS: Famotidine 20 MG TAB PO SCH ×2 (09:31→20:45)
[2017-10-13] MEDS: Prenatal Vitamin 1 TAB PO SCH (09:31)
[2017-10-13] MEDS: Enoxaparin Sodium 40 MG/0.4 ML SYRINGE SC SCH (09:33)
--- NOTE | 2017-10-13 11:21 | PDOC.PN ---
- Subjective Encounter Start Date: 10/13/17 Encounter Start Time: 10:50 -: +Headaches. - Objective Resuscitation Status: Resuscitation Status FULL:Full Resuscitation Vital Signs & Weight: Vital Signs (12 hours) Temp Pulse Resp BP Pulse Ox 10/13/17 09:35 99.4 F 67 18 10/13/17 09:34 99.4 F 67 18 143/92 H 97 10/13/17 04:40 98.2 F 67 18 146/91 H 10/13/17 00:47 99.2 F 59 L 18 166/89 H 99 I&O: 10/12/17 10/13/17 10/14/17 06:59 06:59 06:59 Intake Total 2206 4959 Output Total 2900 3100 Balance -694 1859 Result Diagrams: 10/11/17 04:49 10/11/17 04:49 Phys Exam - Physical Examination Neck: no JVD Respiratory: clear to auscultation bilateral Cardiovascular: RRR Gastrointestinal: soft Musculoskeletal: no edema Neurological: moves all 4 limbs Psychiatric: A&O x 3 (Small area of phlebitis in right arm...to change iv site.) Dx/Plan (1) Fever Code(s): R50.9 - FEVER, UNSPECIFIED Status: Acute Comment: Afebrile for the last 48 hours.. BXC noticed. ?contamination (2) Hypokalemia Code(s): E87.6 - HYPOKALEMIA Status: Acute Plan: repeat bmp. Comment: supplemented.. - Plan -: f/u with ID. * .
[2017-10-13 13:26] LABS: #Basophils 0.1 thou/uL (0.0-0.2); #Eosinphils 0.3 thou/uL (0.0-0.7); #Lymphocytes 2.5 thou/uL (1.20-3.40); #Monocytes 0.6 thou/uL (0.11-0.59); #Neutrophils 5.4 thou/uL (1.40-6.50); %Basophils 0.6 % (0.0-1.0); %Eosinophils 3.9 % (0.0-10.0); %Lymphocytes 27.9 % (21.0-51.0); %Monocytes 6.5 % (0.0-10.0); %Neutrophils 61.1 % (42.0-75.0); Hemoglobin 12.4 g/dL (12.0-16.0); Mean Corpuscular HGB CONC 32.8 g/dL (32.0-36.0); Mean Corpuscular Hemoglobin 28.6 pg (27.0-31.0); Mean Corpuscular Volume 87.1 fl (81.0-99.0); Platelet Count 278 thou/uL (130-400); RBC Distribution Width 13.3 % (11.5-14.5); Red Blood Cell (RBC) Count 4.34 mill/uL (4.20-5.40); White Blood Cell (WBC) Count 8.9 thou/uL (4.8-10.8)
[2017-10-13 13:40] LABS: ALT (SGPT) 35 U/L (8-55); AST (SGOT) 18 U/L (5-34); Albumin 3.9 g/dL (3.5-5.0); Alkaline Phosphatase 95 U/L (40-150); Anion Gap 11 mmol/L (10-20); BUN (Urea Nitrogen) 7 mg/dL (7.0-18.7); Bilirubin, Total 0.2 mg/dL (0.2-1.2); Calc. Creatinine Clearance 189 mL/min (70-130); Calcium 9.5 mg/dL (7.8-10.44); Carbon Dioxide 27 mmol/L (22-29); Chloride 108 mmol/L (98-107); Estimated GFR-MDRD Greater than 90; Globulin 3.1 g/dL (2.4-3.5); Glucose 77 mg/dL (70-105); Potassium 4.2 mmol/L (3.5-5.1); Sodium 142 mmol/L (136-145)
[2017-10-14] MEDS: Acetaminophen 325 MG TAB PO PRN (01:05)
[2017-10-14] MEDS: Sodium Chloride 0.9% 1,000 ML IV SCH (01:05)
[2017-10-14] MEDS: Levothyroxine 150 MCG TAB PO SCH (06:16)
[2017-10-14 07:37] VITALS: BP 139/83; TEMP 98.4
[2017-10-14] MEDS: Enoxaparin Sodium 40 MG/0.4 ML SYRINGE SC SCH (07:48)
[2017-10-14] MEDS: Famotidine 20 MG TAB PO SCH (09:42)
[2017-10-14] MEDS: Prenatal Vitamin 1 TAB PO SCH (09:42)
--- NOTE | 2017-10-15 09:37 | DIS ---
DATE OF DISCHARGE: 10/14/2017 DISCHARGE DISPOSITION: Home. FOLLOWUP: Follow up with primary care physician, Dr. Alexis Wright, in 1 week (new primary care destini bishop). ALLERGIES: No known drug allergies. DISCHARGE MEDICATIONS: Vantin 200 mg twice a day for the next 7 days. Other home medications were r esumed. INPATIENT CONSULTANTS: Infectious Disease, Dr. Pittman and CORRUGATED FASTENER DRIVER, Dr. Dang. BRIEF HOSPITAL COURSE: The patient is a 27-year-old female with twin delivery last month, presented to the emergency room with fever. Please refer to the history and physical dated 10/10/[address] Cristal rodriguez for further details. The patient was admitted to the hospital with a diagnosis of sepsis. Her WBC count on admission was 10.4 with neutrophils of 83. Blood culture 1 of 2 was negative. A second culture showed micrococcus and corynebacterium probably contaminant. Urine cultures were negative. A CT scan of the abdomen a nd pelvis on admission showed stable nonobstructing tiny renal calculi without any other acute findin gs. Chest x-ray was negative. Breast ultrasound showed asymmetric area of heterogenicity in the lef t breast. The patient was evaluated by CORRUGATED FASTENER DRIVER and Infectious Disease. Per Infectious Disease, the p atient probably has pyelonephritis. He recommended changing broad spectrum antibiotics to Vantin. T he patient has been cleared for discharge by the consultants. FINAL DIAGNOSES: 1. Suspected sepsis secondary to pyelonephritis. 2. Obesity with a BMI 32.5. 3. Questionable mastitis. 4. Hypothyroidism. 5. Polycystic ovarian syndrome. 6. Hypokalemia. Plan of care was discussed with the patient. She stated understanding.
== END 2017-10-14 13:48 | disposition home or self-care (01) | DRG 872 ==
LOC: ERS 22:47 → 3SE 10-10 06:17 → 3SW 10-10 18:03 → 3SE 10-14 11:49
PROVIDERS: ADMIT Internal Medicine; ATTEND Internal Medicine
DX: A41.9 Sepsis, unspecified organism (principal); D72.0 Genetic anomalies of leukocytes; E87.6 Hypokalemia; N20.0 Calculus of kidney; E66.9 Obesity, unspecified; Z68.32 Body mass index [BMI] 32.0-32.9, adult; N61.0 Mastitis without abscess; E03.9 Hypothyroidism, unspecified; E28.2 Polycystic ovarian syndrome
CPT/HCPCS: 36415; 51701; 71045; 74177; 76856; 80053; 80202; 81003; 81015; 83605; 84702; 85025; 87040; 87070; 87077; 87086; 87149; 87186; 87205; 87804; 93970; 93976; 96361; 96374; A4216; A4353; J1650; J2185; J2543; J3370; J7050

== ENCOUNTER 2018-01-09 03:03 | Emergency (ER) | payer BC, MEDICAID ==
[2018-01-09] MEDS ORDERED: Ondansetron ODT 4 MG TAB ONE (03:18)
[2018-01-09] MEDS ORDERED: Acetaminophen 325 MG TAB ONE (03:59)
[2018-01-09 04:01] LABS: Bilirubin Negative (Negative); Blood, Urine Negative (Negative); Glucose, Urine (Dipstick) Negative (Negative); Leukocyte Trace (Negative); Nitrite Negative (Negative); Protein, Urine (Dipstick) Negative (Neg-Trace); Urobilinogen 0.2 mg/dL (0.2-1.0)
[2018-01-09 04:03] LABS: Clarity Clear (Clear)
[2018-01-09 04:04] LABS: Bacteria/HPF None Seen HPF (None Seen); RBC/HPF None Seen HPF (0-3); Renal Epithelial None Seen HPF (0-3); Squamous Epithelial 0-3 HPF (0-3); Transitional Epithelial NONE SEEN HPF (0-3); WBC/HPF 0-3 HPF (0-3)
[2018-01-09 04:05] LABS: Crystals/HPF None Seen HPF (Negative); Hyaline Casts/LPF NONE SEEN LPF (0-3 Hyaline); Other Microscopic Description Less than 2 mL rec'd; Pregnancy Test - Urine (BHCG) Negative (Negative); Pregu Control Background? CLEAR/WHITE (CLR/WHITE); Pregu Control Bar Appear? YES (CONTROL BAR)
[2018-01-09 04:33] LABS: Mean Corpuscular HGB CONC 33.5 g/dL (32.0-36.0); Mean Corpuscular Hemoglobin 29.3 pg (27.0-31.0); Mean Corpuscular Volume 87.6 fL (78.0-98.0); Mean Platelet Volume 6.9 fL (7.4-10.4); Platelet Count 235 thou/uL (130-400); RBC Distribution Width 13.7 % (11.5-14.5); Red Blood Cell (RBC) Count 5.12 mill/uL (4.20-5.40); White Blood Cell (WBC) Count 9.4 thou/uL (4.8-10.8)
[2018-01-09 04:42] LABS: ALT (SGPT) 16 U/L (8-55); AST (SGOT) 18 U/L (5-34); Albumin 4.8 g/dL (3.5-5.0); Alkaline Phosphatase 117 U/L (40-150); Anion Gap 16 mmol/L (10-20); BUN (Urea Nitrogen) 17 mg/dL (7.0-18.7); Bilirubin, Total 0.5 mg/dL (0.2-1.2); Calc. Creatinine Clearance 0 mL/min (70-130); Carbon Dioxide 20 mmol/L (22-29); Chloride 102 mmol/L (98-107); Estimated GFR-MDRD 80; Globulin 3.4 g/dL (2.4-3.5); Glucose 109 mg/dL (70-105); Protein, Total 8.2 g/dL (6.0-8.3); Sodium 134 mmol/L (136-145)
[2018-01-09 04:56] LABS: Band 40 % (5-11); Lymphocytes 9 % (21-51); MDiff Complete? YES; Monocytes 8 % (0-10); Neutrophil 43 % (42-75)
[2018-01-09] MEDS ORDERED: Promethazine HCl 25 MG/ML VIAL ONE (05:14)
== END 2018-01-09 06:20 | disposition home or self-care (01) ==
LOC: ERS 03:03
DX: R19.7 Diarrhea, unspecified (principal); R50.9 Fever, unspecified; R11.0 Nausea; E03.9 Hypothyroidism, unspecified; E28.2 Polycystic ovarian syndrome; F41.9 Anxiety disorder, unspecified; F32.9 Major depressive disorder, single episode, unspecified; Z79.84 Long term (current) use of oral hypoglycemic drugs; Z79.899 Other long term (current) drug therapy
CPT/HCPCS: 80053; 81003; 81015; 81025; 85025; 96361; 96365; J2550; Q0162